=== PATIENT | female | born 1985 | race Caucasian/White ===

== ENCOUNTER → 2017-12-07 15:02 | Outpatient (CLI) | payer OTHER, SELFPAY ==
[2017-12-07 16:00] LABS: ALB/GLOB Ratio 1.2 RATIO (0.9-2.4); AST(SGOT) 20 U/L (15-37); Alanine Aminotransfer ALT/SGPT 34 U/L (13-56); Albumin, Serum 3.9 g/dL (3.2-5.0); Alkaline Phosphatase 123 U/L (45-117); Anion Gap 9 (5-15); BUN 14 mg/dL (7-18); BUN/Creat Ratio 20.1 RATIO (10-20); Calcium,Total 8.5 mg/dL (8.5-10.1); Chloride 106 mmol/L (98-107); Cholesterol 192 mg/dL (200); EST Glomerular Filtration Rate 105 mL/min (>60); Est Glom Filt Rate - Afr Amer 127 mL/min (>60); Estradiol 36.1 pg/mL; Follicle Stimulating Hormone 5.6 mIU/mL; Globulin 3.2 g/dL (2.2-4.2); Glucose 65 mg/dL (74-106); High Density Lipoprotein 33 mg/dL; Luteinizing Hormone 2.6 mIU/mL; Protein, Total 7.1 g/dL (6.4-8.2); Sodium Level 140 mmol/L (136-145); Thyroid Stim Hormone (TSH) 5.56 uIU/mL (0.358-3.74); Triglycerides 193 mg/dL; Very Low Density Lipoprotein 39 mg/dL (5-40)
[2017-12-23 12:08] LABS: Testosterone, Free 0.76 ng/dL (0.10-0.85); Testosterone, Total 34 ng/dL (8-48)
[2017-12-23 13:43] LABS: Testosterone, % Free 2.25 % (0.50-2.80)
== END ==
PROVIDERS: Family Provider Family Medicine; PCP Family Medicine; Visit Provider Internal Medicine Endocrinology, Diabetes & Metabolism
DX: E24.9 Cushing's syndrome, unspecified (principal); R94.6 Abnormal results of thyroid function studies; E78.00 Pure hypercholesterolemia, unspecified; L68.0 Hirsutism; L65.9 Nonscarring hair loss, unspecified; E28.2 Polycystic ovarian syndrome
CPT/HCPCS: 80053; 80061; 82670; 83001; 83002; 84402; 84403; 84443

== ENCOUNTER → 2017-12-20 14:22 | Outpatient (CLI) | payer OTHER, SELFPAY ==
[2017-12-20 17:24] LABS: hCG Titer Quant., Serum < 1 mIU/mL (<9 non-preg)
== END ==
PROVIDERS: Family Provider Family Medicine; PCP Family Medicine; Visit Provider Obstetrics & Gynecology
DX: N92.6 Irregular menstruation, unspecified (principal)
CPT/HCPCS: 36415; 84702

== ENCOUNTER → 2018-01-19 05:52 | Outpatient (CLI) | payer OTHER, SELFPAY | PROVIDERS: Family Provider Family Medicine; PCP Family Medicine; Visit Provider Internal Medicine Endocrinology, Diabetes & Metabolism | DX: E03.8 Other specified hypothyroidism (principal) | CPT/HCPCS: 84443 ==

== ENCOUNTER 2018-01-31 03:38 | Emergency (ER) | payer OTHER, SELFPAY ==
[2018-01-31 03:39] VITALS: BP 131/92; PULSE 84; RESP 18; TEMP 36.8; O2SAT 98; BMI 36.1
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
--- NOTE | 2018-01-31 04:02 | ED.DEP ---
ED Disposition - Plan for ED Patient: Chief Complaint: Back Instructions: ED Low Back Pain Injury Prescriptions: Cyclobenzaprine [Flexeril] 10 mg PO TID PRN #20 tab PRN Reason: Muscle Spasm Referrals: Jazmin Merrill PA-C [Primary Care Provider] -
[2018-01-31] MEDS: Ketorolac 60 MG/2 ML Vial IM (04:11)
[2018-01-31] MEDS: Orphenadrine 60 MG/2 ML Ampul IM (04:11)
[2018-01-31 04:32] VITALS: BP 118/78; PULSE 74; RESP 18; O2SAT 98
== END 2018-01-31 04:34 | disposition home or self-care (01) ==
PROVIDERS: Emergency Provider Emergency Medicine; Family Provider Family Medicine; PCP Family Medicine
DX: M54.6 Pain in thoracic spine (principal); M54.2 Cervicalgia; R51 Headache; E03.9 Hypothyroidism, unspecified; V89.2XXA Person injured in unspecified motor-vehicle accident, traffic, initial encounter; Y93.9 Activity, unspecified; Y92.9 Unspecified place or not applicable; Z90.89 Acquired absence of other organs; Z79.899 Other long term (current) drug therapy
CPT/HCPCS: 96372; 99282

== ENCOUNTER → 2018-04-02 13:18 | Outpatient (CLI) | payer OTHER, SELFPAY ==
[2018-04-02 14:17] LABS: Anion Gap 10 (5-15); BUN 15 mg/dL (7-18); BUN/Creat Ratio 16.7 RATIO (10-20); Calcium,Total 8.8 mg/dL (8.5-10.1); Chloride 108 mmol/L (98-107); EST Glomerular Filtration Rate 78 mL/min (>60); Est Glom Filt Rate - Afr Amer 94 mL/min (>60); Glucose 87 mg/dL (74-106); Potassium 3.2 mmol/L (3.5-5.1); Sodium Level 142 mmol/L (136-145); Thyroid Stim Hormone (TSH) 3.49 uIU/mL (0.358-3.74)
== END ==
PROVIDERS: Family Provider Family Medicine; PCP Family Medicine; Visit Provider Internal Medicine Endocrinology, Diabetes & Metabolism
DX: E03.8 Other specified hypothyroidism (principal)
CPT/HCPCS: 80048; 84443

== ENCOUNTER 2018-04-03 02:48 | Emergency (ER) | payer OTHER, SELFPAY ==
[2018-04-03 02:49] VITALS: BP 120/86; PULSE 84; RESP 18; TEMP 37.1; O2SAT 97; BMI 37.5
--- NOTE | 2018-04-03 03:07 | CT_ITS ---
STUDY: CT SOFT TISSUE NECK WITH CONTRAST REASON FOR EXAM: Female, 33 years old. Strep throat RADIATION DOSAGE (If Supplied By Facility): CTDIvol = ( 22.36 ) mGy, DLP = ( 658.85 ) mGycm TECHNIQUE: The patient was scanned in a multi-detector CT scanner. High resolution transaxial imaging was performed following intravenous administration of 75 ml of Isovue 300 contrast material. Sagittal and coronal images were reconstructed. Individualized dose optimization techniques were used for this CT. COMPARISON: None. FINDINGS: SUPRAHYOID HEAD AND NECK ITEM REPAIR MANAGER SPACE (INCLUDING SUPRAZYGOMATIC PORTION): Normal with no evidence of an accessory parotid lobe. No calcification in parotid duct. PARAPHARYNGEAL SPACE: Normal and symmetric. No evidence of asymmetric pterygoid plexus. RETROPHARYNGEAL SPACE: Normal with no enlarged nodes of Rouvier laterally CAROTID SPACE: Normal PERIVERTEBRAL SPACE: The prevertebral and paraspinal components are normal. PAROTID SPACE: Negative PHARYNGEAL MUCOSAL SPACE: The tonsils are minimally inflamed and enlarged but the do not touch in the midline and there is no evidence of tonsillar abscess formation. 2 tonsilliths are in the left. ORAL CAVITY : The mucosal surfaces including the anterior two thirds of the tongue and the submandibular and sublingual spaces are normal INFRAHYOID HEAD AND NECK: VISCERAL SPACE: The thyroid, trachea, esophagus, larynx and hypopharynx are normal. THE CAROTID, RETROPHARYNGEAL, PERIVERTEBRAL and POSTERIOR CERVICAL SPACES (Containing The Spinal Accessory Lymph Nodes): Normal . ORBITS AND PARANASAL SINUSES: Negative CERVICAL LYMPH NODES: Negative CT/Soft Tissue Neck WITH Contrast IMPRESSION: Mild bilateral tonsillitis. No tonsillar abscess formation is seen at this time. There are 2 tonsilliths in the left Electronically Signed: Marino Fulton, at 4:21 EDT Tel , Service support ,
[2018-04-03] MEDS: Ketorolac 30 MG/ML Syringe IV (03:29)
--- NOTE | 2018-04-03 05:05 | ED.DCSUM_ITS ---
- ER Visit Summary Date of Service: 04/03/18 Chief Complaint: Sore throat History of Present Illness: The patient is a 33 F presenting with sore throat since . She was diagnosed with strep throat and was started on Augmentin. On she was given Decadron with improvement. This morning she woke up with severe pain in her throat. She has painful swallowing. No fever. No other complaints. Physical Examination: Vitals are stable. Patient is afebrile. Alert no acute distress. HEENT exam tonsillar swelling right greater than left, uvula midline, tonsillar exudate Neck is supple. Lungs are clear and equal bilaterally. Heart is regular rate and rhythm. Extremities are unremarkable. Skin is warm and dry. Remainder of exam is unremarkable. Emergency Department Course and Treatment: Patient was given Decadron, Toradol IV. She had improvement of her symptoms. CT soft tissue neck shows mild bilateral tonsillitis. No tonsillar abscess formation is seen at this time. There are 2 tonsilliths in the left. She is resting comfortably. She is advised to continue her Augmentin. Advised to follow-up with PCP and return to the ED if she worsens. Disposition: Discharge home Impression: Tonsillitis This note was generated with [employer] dictation software. It may contain incorrect words, spelling, and punctuation that were not noted in review of the chart prior to signing ED Disposition - Plan for ED Patient: Chief Complaint: Sore Throat Referrals: Jazmin Merrill PA-C [Primary Care Provider] -
--- NOTE | 2018-04-03 05:10 | ED.DEP ---
ED Disposition - Plan for ED Patient: Chief Complaint: Sore Throat Instructions: ED Strep Pharyngitis Conf Referrals: Jazmin Merrill PA-C [Primary Care Provider] -
[2018-04-03 05:15] VITALS: BP 129/96; PULSE 78; O2SAT 97
== END 2018-04-03 05:16 | disposition home or self-care (01) ==
PROVIDERS: Emergency Provider Emergency Medicine; Family Provider Family Medicine; PCP Family Medicine
DX: J03.90 Acute tonsillitis, unspecified (principal); Z72.0 Tobacco use
CPT/HCPCS: 70491; 96374; 99285; Q9967; A4216

== ENCOUNTER → 2018-05-04 19:15 | Outpatient (CLI) | payer OTHER, SELFPAY ==
[2018-05-04 20:03] LABS: Anion Gap 8 (5-15); BUN 11 mg/dL (7-18); BUN/Creat Ratio 14.7 RATIO (10-20); Calcium,Total 9.3 mg/dL (8.5-10.1); Chloride 104 mmol/L (98-107); Creatinine, Serum 0.75 mg/dL (0.55-1.02); EST Glomerular Filtration Rate 96 mL/min (>60); Est Glom Filt Rate - Afr Amer 116 mL/min (>60); Glucose 78 mg/dL (74-106); Potassium 4.1 mmol/L (3.5-5.1); Sodium Level 138 mmol/L (136-145)
== END ==
PROVIDERS: Family Provider Family Medicine; PCP Family Medicine; Visit Provider Internal Medicine Endocrinology, Diabetes & Metabolism
DX: E87.6 Hypokalemia (principal)
CPT/HCPCS: 80048

== ENCOUNTER 2018-09-30 12:16 | Emergency (ER) | payer OTHER, SELFPAY ==
[2018-09-30 12:16] VITALS: BP 117/71; PULSE 80; RESP 16; TEMP 36.3; O2SAT 96; BMI 36.0
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
[2018-09-30] MEDS: Cephalexin 250 MG Capsule 500 MG PO (12:30)
[2018-09-30 12:33] VITALS: TEMP 36.3; BMI 36.0
== END 2018-09-30 13:04 | disposition home or self-care (01) ==
PROVIDERS: Emergency Provider Emergency Medicine; Family Provider Family Medicine; PCP Family Medicine
DX: S60.811A Abrasion of right wrist, initial encounter (principal); S60.812A Abrasion of left wrist, initial encounter; Y04.0XXA Assault by unarmed brawl or fight, initial encounter; Y93.9 Activity, unspecified; Y92.9 Unspecified place or not applicable; E03.9 Hypothyroidism, unspecified; F41.9 Anxiety disorder, unspecified; Z79.899 Other long term (current) drug therapy
CPT/HCPCS: 99284

== ENCOUNTER → 2018-10-06 10:33 | Outpatient (CLI) | payer OTHER, SELFPAY ==
[2018-09-30 12:33] VITALS: BMI 36.0
[2018-10-06 14:08] LABS: Estradiol 63.5 pg/mL
[2018-10-06 14:11] LABS: Progesterone Level 10.53 ng/mL (See Comment)
== END ==
PROVIDERS: Family Provider Family Medicine; PCP Family Medicine; Visit Provider Obstetrics & Gynecology
DX: N92.0 Excessive and frequent menstruation with regular cycle (principal); R30.0 Dysuria
CPT/HCPCS: 36415; 82670; 84144; 87086

== ENCOUNTER → 2018-10-21 16:11 | Outpatient (CLI) | payer OTHER, SELFPAY ==
[2018-09-30 12:33] VITALS: BMI 36.0
--- NOTE | 2018-10-21 19:00 | US_ITS ---
STUDY: ULTRASOUND OF THE FEMALE PELVIS - COMPLETE REASON FOR EXAM: Female, 33 years old. Heavy bleeding and cramping LMP: 10/17/2018 TECHNIQUE: Transabdominal TECHNICAL QUALITY: Adequate. COMPARISON: 07/14/2017 FINDINGS: The uterus is anteverted and is in a midline position. The uterus measures 8.8 x 4.7 x 2.9 cm. Normal uterine cervix. The endometrium measures 4.0 mm in thickness, and is hyperechoic. There is no demonstrated endometrial mass. There is no demonstrated myometrial mass. I.U.D. - The patient does not have an I.U.D. The right ovary is visualized. The right ovary measures 3.0 x 2.3 x 1.6 cm. There is no right ovarian cyst or ovarian mass. There is no visualized right adnexal mass or complex lesion. There is normal arterial and normal venous vascularity. The left ovary is visualized. The left ovary measures 2.8 x 2.0 x 1.2 cm. There is no left ovarian cyst or ovarian mass. There is no visualized left adnexal mass or complex lesion. There is normal arterial and normal venous vascularity. There is no fluid in the cul-de-sac. Visualized urinary bladder is unremarkable. US/Pelvic (Non ) IMPRESSION: Normal female pelvis. Electronically Signed: Hector Ramirez MD at 22:56 EST , Service support ,
== END ==
PROVIDERS: Family Provider Family Medicine; PCP Family Medicine; Referring Provider Obstetrics & Gynecology; Visit Provider Obstetrics & Gynecology
DX: N92.0 Excessive and frequent menstruation with regular cycle (principal)
CPT/HCPCS: 76856; 93976

== ENCOUNTER → 2018-12-02 16:24 | Outpatient (CLI) | payer OTHER, SELFPAY ==
[2018-12-02 20:34] LABS: AST(SGOT) 16 U/L (15-37); Albumin, Serum 3.8 g/dL (3.2-5.0); BUN 11 mg/dL (7-18); Calcium,Total 8.9 mg/dL (8.5-10.1); Creatinine, Serum 0.79 mg/dL (0.55-1.02); EST Glomerular Filtration Rate 90 mL/min (>60); Est Glom Filt Rate - Afr Amer 109 mL/min (>60); Globulin 3.8 g/dL (2.2-4.2); Glucose 74 mg/dL (74-106); Protein, Total 7.6 g/dL (6.4-8.2)
[2018-12-02 20:35] LABS: Alanine Aminotransfer ALT/SGPT 32 U/L (13-56); Alkaline Phosphatase 114 U/L (45-117); Anion Gap 9 (5-15); Chloride 107 mmol/L (98-107); Potassium 3.8 mmol/L (3.5-5.1); Sodium Level 140 mmol/L (136-145); Thyroid Stim Hormone (TSH) 3.64 uIU/mL (0.358-3.74)
== END ==
PROVIDERS: Family Provider Family Medicine; PCP Family Medicine
DX: E03.8 Other specified hypothyroidism (principal)
CPT/HCPCS: 80053; 84443

== ENCOUNTER → 2018-12-23 23:38 | Outpatient (CLI) | payer OTHER, SELFPAY | PROVIDERS: Family Provider Family Medicine; PCP Family Medicine; Referring Provider Family Medicine; Visit Provider Family Medicine | DX: G47.10 Hypersomnia, unspecified (principal); G47.00 Insomnia, unspecified; G25.81 Restless legs syndrome; R06.81 Apnea, not elsewhere classified; R06.83 Snoring; R51 Headache | CPT/HCPCS: 95810 ==

== ENCOUNTER → 2019-01-19 | Outpatient (CLI) | payer OTHER, SELFPAY | END | disposition home or self-care (01) | LOC: SL 20:33 | PROVIDERS: Family Provider Family Medicine; PCP Family Medicine; Referring Provider Family Medicine; Visit Provider Family Medicine | DX: R06.81 Apnea, not elsewhere classified (principal); G47.00 Insomnia, unspecified; G25.81 Restless legs syndrome; R06.83 Snoring; G47.10 Hypersomnia, unspecified; R51 Headache | CPT/HCPCS: 95811 ==

== ENCOUNTER → 2019-02-08 | Outpatient (CLI) | payer OTHER, SELFPAY | END | disposition home or self-care (01) | LOC: LAB 19:43 | PROVIDERS: Family Provider Family Medicine; PCP Family Medicine; Referring Provider Internal Medicine Endocrinology, Diabetes & Metabolism; Visit Provider Internal Medicine Endocrinology, Diabetes & Metabolism | DX: E03.8 Other specified hypothyroidism (principal) | CPT/HCPCS: 84443 ==

== ENCOUNTER 2019-03-14 11:21 | Emergency (ER) | payer OTHER, SELFPAY ==
[2019-03-14 11:22] VITALS: BP 155/101; PULSE 113; RESP 24; TEMP 36.8; BMI 36.0
--- NOTE | 2019-03-14 11:30 | ED.RN ---
lower back pain radiating around through groin. constant with surges of incresed pain. sharp/cramping. shooting sharp down through legs.
--- NOTE | 2019-03-14 11:32 | ED.VISSUMM ---
- ER Visit Summary Date of Service: 03/14/19 Chief Complaint: Back pain History of Present Illness: The patient is a 34 F who sees María Elena Merrill. Patient reports that she has back pain that began yesterday. 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 She reports that her back began spasming approximately 20 minutes later. It is gradually gotten worse. It is now a cramping pain is 10 out of 10 in severity. Is worsened by movement or walking. Is relieved by nothing. She reports that it radiates into the inguinal region bilaterally. She denies any numbness. No problems with her bowels or her bladder. No groin numbness. She does report that the pain has made her nauseated. She has not vomited. She denies any abdominal pain. She denies any other red flags. Patient denies any other trauma. No fall or MVA. She reports that she has had problems with her back once previously, but never this severe. She is never had an MRI. Physical Examination: Vitals: Stable. Afebrile. General: A&O x 3. NAD. Cardiovascular exam: Regular rate and rhythm, no murmur, rub or gallop. Respiratory exam: Clear to auscultation bilaterally. No wheezes or stridor. Abdominal exam: Soft, nontender, nondistended, normal bowel sounds. No peritoneal signs. Back: Diffuse moderate tenderness to palpation over the lumbar spine and the paraspinous musculature in the lumbar region. No point tenderness. Negative straight leg bilaterally. 5/5 DF, PF, EHL bilaterally. Normal sensation to light touch throughout. Extremity: No clubbing, cyanosis, or edema. Test Results: Clinical Impression(s) from Imaging Studies Lumbar Spine MRI 03/14/19 12:16 IMPRESSION: 1. Severe friction related edema of the posterior subcutaneous fat. 2. Mild focal degenerative disc disease at L5/S1. Electronically Signed: Charles Ortega MD at 16:02 EDT Tel , Service support , Emergency Department Course and Treatment: Patient had an IV placed. She was given Dilaudid, Zofran, and Toradol IV. She was given Valium p.o. She is resting more comfortably, but with any movement has severe pain. Treatment Plan: The patient will be discharged with Percocet and Valium. Instructed to use naproxen in addition to this. Follow-up with [facility] as soon as possible. Return to the emergency department for any worsening symptoms. Disposition: To home in improved and stable condition. Impression: 1. Lumbar strain. This note was generated with [employer] dictation software. It may contain incorrect words, spelling, and punctuation that were not noted in review of the chart prior to signing ED Disposition - Plan for ED Patient: Instructions: BACK AND NECK PAIN, General Prescriptions: Oxycodone HCl/Acetaminophen [Percocet 5/325] 1 tab PO Q6H PRN PRN 5 Days #20 tab PRN Reason: Pain Prescription Printed Diazepam [Valium] 5 mg PO Q8 PRN #20 tab PRN Reason: Muscle Spasm Prescription Printed Referrals: [facility] [GROUP OF PHYSICIANS] - As soon as possible
[2019-03-14] MEDS: Ondansetron 4 MG/2 ML Vial IV (11:41)
[2019-03-14] MEDS: 0.9% Normal Saline 1,000 ML 999 ML IV (11:42)
[2019-03-14] MEDS: HYDROmorphone 1 MG/ML Syringe IV (11:42)
[2019-03-14] MEDS: diazePAM 5 MG Tablet PO (11:42)
[2019-03-14] MEDS: Ketorolac 30 MG/ML Syringe IV (11:46)
--- NOTE | 2019-03-14 12:16 | MRI_ITS ---
STUDY: MRI LUMBAR SPINE WITHOUT CONTRAST REASON FOR EXAM: Female, 34 years old. Low back pain, groin pain. TECHNIQUE: Standardized fat and water weighted pulse sequences were obtained in the sagittal and axial planes. COMPARISON: None FINDINGS: T12-L1: Normal endplates. Normal disc height, hydration and morphology. Normal bilateral facet joints. Normal central canal and bilateral lateral recesses. Normal bilateral intervertebral neural foramina. Normal lumbar lordosis. There is no substantial scoliosis. Normal conus medullaris that terminates at the L1/L2. L1-2: Normal endplates. Normal disc height, hydration and morphology. Normal bilateral facet joints. Normal central canal and bilateral lateral recesses. Normal bilateral intervertebral neural foramina. L2-3: Normal endplates. Normal disc height, hydration and morphology. Normal bilateral facet joints. Normal central canal and bilateral lateral recesses. Normal bilateral intervertebral neural foramina. L3-4: Normal endplates. Normal disc height, hydration and morphology. Normal bilateral facet joints. Normal central canal and bilateral lateral recesses. Normal bilateral intervertebral neural foramina. L4-5: Normal endplates. Normal disc height, hydration and morphology. Normal bilateral facet joints. Normal central canal and bilateral lateral recesses. Normal bilateral intervertebral neural foramina. L5-S1: Small central disc protrusion produces mild spinal stenosis but no neural foraminal stenosis. Normal visualized sacral ala. Severe friction related edema of the posterior subcutaneous fat. MRI/Spine Lumbar (Routine) IMPRESSION: 1. Severe friction related edema of the posterior subcutaneous fat. 2. Mild focal degenerative disc disease at L5/S1. Electronically Signed: Charles Ortega MD at 16:02 EDT Tel , Service support ,
[2019-03-14] MEDS: oxyCODONE 5 MG Tablet 10 MG PO (12:28)
[2019-03-14 12:32] VITALS: BP 129/86; PULSE 70; RESP 18; O2SAT 99
[2019-03-14 14:38] VITALS: BP 108/68; PULSE 72; RESP 16; O2SAT 99
[2019-03-14 16:25] VITALS: BP 117/83; PULSE 87; RESP 16; O2SAT 98
[2019-03-14] MEDS: HYDROmorphone 0.5 MG/0.5 ML SYRINGE IV (17:21)
== END 2019-03-14 17:22 | disposition home or self-care (01) ==
LOC: ED 11:57
PROVIDERS: Emergency Provider Emergency Medicine; Family Provider Family Medicine; PCP Family Medicine
DX: S39.012A Strain of muscle, fascia and tendon of lower back, initial encounter (principal); R11.0 Nausea; M51.37 Other intervertebral disc degeneration, lumbosacral region; X58.XXXA Exposure to other specified factors, initial encounter; Y93.9 Activity, unspecified; Y92.9 Unspecified place or not applicable; G47.33 Obstructive sleep apnea (adult) (pediatric); E03.9 Hypothyroidism, unspecified; Z79.899 Other long term (current) drug therapy
CPT/HCPCS: 72148; 96361; 96374; 96375; 96376; 99282; J7030; J2405

== ENCOUNTER → 2019-04-16 | Outpatient (CLI) | payer OTHER, SELFPAY ==
[2019-03-16 12:34] VITALS: BMI 36.0
[2019-04-16 08:13] LABS: ALB/GLOB Ratio 0.9 RATIO (0.9-2.4); AST(SGOT) 20 U/L (15-37); Alanine Aminotransfer ALT/SGPT 39 U/L (13-56); Albumin, Serum 3.6 g/dL (3.2-5.0); Alkaline Phosphatase 114 U/L (45-117); Anion Gap 4 (5-15); BUN 10 mg/dL (7-18); BUN/Creat Ratio 11.8 RATIO (10-20); Chloride 109 mmol/L (98-107); Creatinine, Serum 0.84 mg/dL (0.55-1.02); EST Glomerular Filtration Rate 83 mL/min (>60); Est Glom Filt Rate - Afr Amer 100 mL/min (>60); Globulin 3.9 g/dL (2.2-4.2); Glucose 102 mg/dL (74-106); Potassium 3.8 mmol/L (3.5-5.1); Protein, Total 7.5 g/dL (6.4-8.2); Sodium Level 136 mmol/L (136-145); Thyroid Stim Hormone (TSH) 4.09 uIU/mL (0.358-3.74)
== END | disposition home or self-care (01) ==
PROVIDERS: Family Provider Family Medicine; PCP Family Medicine
DX: E03.8 Other specified hypothyroidism (principal)
CPT/HCPCS: 80053; 84443

== ENCOUNTER → 2019-06-13 18:51 | Outpatient (CLI) | payer OTHER, SELFPAY ==
[2019-03-16 12:34] VITALS: BMI 36.0
[2019-06-13 20:01] LABS: Thyroid Stim Hormone (TSH) 4.06 uIU/mL (0.358-3.74)
== END ==
PROVIDERS: Family Provider Family Medicine; PCP Family Medicine; Referring Provider Internal Medicine Endocrinology, Diabetes & Metabolism; Visit Provider Internal Medicine Endocrinology, Diabetes & Metabolism
DX: E03.8 Other specified hypothyroidism (principal)
CPT/HCPCS: 84443

== ENCOUNTER → 2019-06-21 11:56 | Outpatient (CLI) | payer OTHER, SELFPAY ==
[2019-06-19 15:48] VITALS: BMI 36.0
== END ==
PROVIDERS: Family Provider Family Medicine; PCP Family Medicine; Referring Provider Obstetrics & Gynecology; Visit Provider Obstetrics & Gynecology
DX: L29.9 Pruritus, unspecified (principal); N93.9 Abnormal uterine and vaginal bleeding, unspecified

== ENCOUNTER → 2019-06-23 14:07 | Outpatient (CLI) | payer OTHER, SELFPAY ==
[2019-06-19 15:48] VITALS: BMI 36.0
== END ==
PROVIDERS: Family Provider Family Medicine; PCP Family Medicine; Referring Provider Obstetrics & Gynecology; Visit Provider Obstetrics & Gynecology
DX: L29.9 Pruritus, unspecified (principal); N93.9 Abnormal uterine and vaginal bleeding, unspecified
CPT/HCPCS: 36415

== ENCOUNTER → 2019-07-28 16:13 | Outpatient (CLI) | payer OTHER, SELFPAY ==
[2019-06-19 15:48] VITALS: BMI 36.0
[2019-07-28 18:48] LABS: Thyroid Stim Hormone (TSH) 1.26 uIU/mL (0.358-3.74)
== END ==
PROVIDERS: Family Provider Family Medicine; PCP Family Medicine; Visit Provider Internal Medicine Endocrinology, Diabetes & Metabolism
DX: E03.8 Other specified hypothyroidism (principal)
CPT/HCPCS: 84443

== ENCOUNTER → 2019-11-30 16:49 | Outpatient (CLI) | payer OTHER, SELFPAY ==
[2019-11-30 14:08] VITALS: BMI 36.0
[2019-12-06 03:06] LABS: HPV Genotype 16, Aptima Negative (Negative)
[2019-12-06 13:04] LABS: HPV APTIMA, High Risk Positive (Negative); HPV Genotype 18,45 Aptima Negative (Negative)
== END ==
PROVIDERS: PCP Family Medicine; Referring Provider Obstetrics & Gynecology; Visit Provider Obstetrics & Gynecology
DX: Z12.4 Encounter for screening for malignant neoplasm of cervix (principal)
CPT/HCPCS: 87624; 88175; G0145

== ENCOUNTER → 2020-02-15 14:39 | Outpatient (CLI) | payer OTHER, SELFPAY ==
[2020-02-15 13:13] VITALS: BMI 36.0
== END ==
PROVIDERS: PCP Family Medicine; Referring Provider Nurse Practitioner Women's Health; Visit Provider Nurse Practitioner Women's Health
DX: N76.0 Acute vaginitis (principal)
CPT/HCPCS: 87070; 87205

== ENCOUNTER → 2020-03-07 | Outpatient (CLI) | payer OTHER, SELFPAY ==
[2020-02-15 13:13] VITALS: BMI 36.0
[2020-03-07 19:33] LABS: Bacteria 0 SEEN /hpf (None Seen); Mucous, Urine 0 SEEN /hpf (<or=2+); Red Blood Cells-Urine 0 SEEN /hpf (0-5); Squamous Epithelial Cells - UA 0 SEEN /hpf (5-10); White Blood Cells 0 SEEN /hpf (0-5)
[2020-03-07 19:44] LABS: Color, Urine Yellow (Yellow); Glucose, Dipstick Normal (Normal); Ketone-Dipstick Negative (Negative); Leukocyte Esterase-Dipstick Negative /ul (Negative); Nitrite-Dipstick Negative (Negative); Occult Blood-Urine Negative /ul (Negative); Protein-Dipstick Negative (Negative); Specific Gravity, Urine 1.015 (1.002-1.030); Urine Bilirubin Dipstick Negative (Negative); Urine Clarity Clear (Clear); Urine Urobilinogen Normal (Normal)
== END | disposition home or self-care (01) ==
PROVIDERS: PCP Family Medicine
DX: Z52.4 Kidney donor (principal)
CPT/HCPCS: 36415; 81001; 86900; 86901

== ENCOUNTER → 2020-04-02 08:30 | Outpatient (CLI) | payer OTHER, SELFPAY ==
[2020-02-15 13:13] VITALS: BMI 36.0
== END ==
PROVIDERS: PCP Family Medicine; Visit Provider Family Medicine Hospice and Palliative Medicine
DX: Z11.59 Encounter for screening for other viral diseases (principal)
CPT/HCPCS: 87635; G2023; U0003

== ENCOUNTER → 2020-07-22 10:54 | Outpatient (CLI) | payer OTHER, SELFPAY ==
[2020-07-22 10:09] VITALS: BMI 33.8
[2020-07-22 12:13] LABS: Thyroid Stim Hormone (TSH) 1.15 uIU/mL (0.358-3.74)
== END ==
PROVIDERS: PCP Family Medicine; Referring Provider Obstetrics & Gynecology; Visit Provider Obstetrics & Gynecology
DX: F32.81 Premenstrual dysphoric disorder (principal); N92.1 Excessive and frequent menstruation with irregular cycle
CPT/HCPCS: 36415; 84443

== ENCOUNTER → 2020-08-06 15:37 | Outpatient (CLI) | payer OTHER, SELFPAY ==
[2020-07-22 10:09] VITALS: BMI 33.8
== END ==
PROVIDERS: PCP Family Medicine; Visit Provider Emergency Medicine
DX: R19.7 Diarrhea, unspecified (principal)
CPT/HCPCS: 87493; 87506

== ENCOUNTER → 2020-12-03 | Outpatient (CLI) | payer OTHER, SELFPAY ==
[2020-12-03 13:22] VITALS: BMI 32.4
[2020-12-06 21:48] LABS: HPV APTIMA, High Risk Negative (Negative)
== END | disposition home or self-care (01) ==
LOC: LABSPEC 16:36
PROVIDERS: PCP Family Medicine; Referring Provider Obstetrics & Gynecology; Visit Provider Obstetrics & Gynecology
DX: Z12.4 Encounter for screening for malignant neoplasm of cervix (principal)
CPT/HCPCS: 87624; 88175; G0145

== ENCOUNTER → 2021-08-13 08:27 | Outpatient (CLI) | payer OTHER, SELFPAY ==
--- NOTE | 2021-08-13 08:28 | RAD_ITS ---
STUDY: X-RAY - LEFT KNEE REASON FOR EXAM: Female, 36 years old. Pain. TECHNIQUE: 4 view(s) of the knee. COMPARISON: 04/04/2016. FINDINGS: No acute fracture, dislocation or osseous destruction. Mild medial and patellofemoral arthrosis. Trace joint effusion. Mild anterior swelling. RAD/Knee 4 or More Views IMPRESSION: Left knee intact with mild medial patellofemoral arthrosis Trace joint effusion with mild anterior swelling Electronically Signed: Kan Glez DO at 12:38 EST Tel , Service support ,
== END ==
PROVIDERS: PCP Family Medicine; Visit Provider Orthopaedic Surgery
DX: M25.562 Pain in left knee (principal)
CPT/HCPCS: 73564

== ENCOUNTER 2021-11-24 09:56 | Outpatient (CLI) | payer OTHER, SELFPAY ==
[2021-11-24 10:42] LABS: Vitamin D,25 Hydroxy 32.8 ng/mL
[2021-11-24 10:47] LABS: Hemoglobin A1c 4.9 % (3.8-5.6)
[2021-11-24 10:48] LABS: ALB/GLOB Ratio 0.9 RATIO (0.9-2.4); AST(SGOT) 16 U/L (15-37); Alanine Aminotransfer ALT/SGPT 36 U/L (13-56); Albumin, Serum 3.7 g/dL (3.2-5.0); Alkaline Phosphatase 87 U/L (45-117); Anion Gap 5 (5-15); BUN 21 mg/dL (7-18); BUN/Creat Ratio 21.4 RATIO (10-20); Calcium,Total 8.7 mg/dL (8.5-10.1); Chloride 108 mmol/L (98-107); Creatinine, Serum 0.98 mg/dL (0.55-1.02); EST Glomerular Filtration Rate 69 mL/min (>60); Est Glom Filt Rate - Afr Amer 83 mL/min (>60); Glucose 91 mg/dL (74-106); Potassium 3.8 mmol/L (3.5-5.1); Protein, Total 7.7 g/dL (6.4-8.2); Sodium Level 139 mmol/L (136-145); T4 Free Direct 0.94 ng/dL (0.76-1.46); Thyroid Stim Hormone (TSH) 2.97 uIU/mL (0.358-3.74)
== END 2021-11-24 23:59 | disposition home or self-care (01) ==
LOC: LAB 09:59
PROVIDERS: PCP Family Medicine; Referring Provider Internal Medicine Endocrinology, Diabetes & Metabolism; Visit Provider Internal Medicine Endocrinology, Diabetes & Metabolism
DX: E55.9 Vitamin D deficiency, unspecified (principal); E03.8 Other specified hypothyroidism; E06.3 Autoimmune thyroiditis; E28.2 Polycystic ovarian syndrome
CPT/HCPCS: 36415; 80053; 82306; 83036; 84439; 84443

== ENCOUNTER 2023-05-11 23:05 | Emergency (ER) | payer OTHER, SELFPAY ==
[2023-05-11 23:06] VITALS: BP 118/72; PULSE 95; RESP 18; TEMP 36.6; O2SAT 98
[2023-05-11] MEDS: Penicillin Vk 250 MG Tablet 500 MG PO (23:22)
[2023-05-11] MEDS: dexAMETHasone 10 MG/ML Vial PO.IVFORM (23:22)
--- NOTE | 2023-05-11 23:31 | EX.ED.DYSGE1 ---
HPI History of Present Illness Chief Complaint: Sore Throat Informant: patient Narrative Narrative: Patient is a 38-year-old female who presents to the ER with 2 to 3 days of sore throat. Patient denies any fevers or chills congestion or drainage or cough associated with this. She states that over the past few days the pain has steadily increased yet there has been no fevers or difficulty swallowing. Patient does have a past history of strep throat and states this feels similar nature and with concern for infection presents for evaluation. [facility] Medical History Abnormal glucose Back pain Contraceptive management Limb weakness Norovirus PCOS (polycystic ovarian syndrome) Sleep apnea Thyroid disease Home Medications rizatriptan 10 mg tablet (Maxalt) 10 mg PO ONCE PRN 08/13/21 [History Last Taken Unknown] Keto supplement PO 12/04/21 [History Last Taken Unknown] levonorgestrel 20.4 mcg/24 hrs (8 yrs) 52 mg intrauterine device (Liletta) 1 device intrauterine ONCE 12/04/21 [History Last Taken Unknown] zolpidem 5 mg tablet (Ambien) 5 mg PO QHS PRN 12/04/21 [History Last Taken Unknown] alprazolam 0.5 mg tablet,extended release 24 hr (Xanax XR) 0.5 mg PO DAILY PRN 12/04/22 [History Last Taken Unknown] cholecalciferol (vitamin D3) 125 mcg (5,000 unit) capsule 125 mcg PO DAILY 12/04/22 [History Last Taken Unknown] levothyroxine 125 mcg tablet 125 mcg PO DAILY #90 tabs 04/06/23 [Rx Last Taken Unknown] metformin 500 mg tablet 500 mg PO BID 05/04/23 [History Last Taken Unknown] penicillin V potassium 500 mg tablet 500 mg PO BID 10 days #20 tabs 05/11/23 [Rx Last Taken Unknown] prednisone 20 mg tablet 40 mg (2 x 20 mg) PO DAILY 7 days #14 tabs 05/11/23 [Rx Last Taken Unknown] Allergy/AdvReac Type Severity Reaction Status Date / Time sulfamethoxazole Allergy Rash Verified 05/04/23 10:31 [From Bactrim] trimethoprim [From Bactrim] Allergy Rash Verified 05/04/23 10:31 Family History Father Cancer leukemia Grandfather Hypertension Cancer Diabetes Heart disease Grandmother Hypertension Cancer Diabetes Heart disease Surgical History History of appendectomy History of arthroscopic knee surgery Social History (Updated 05/04/23 @ 10:33 by Em Leos) Smoking Status: Never smoker alcohol intake: never substance use type: does not use caffeine: Yes what type of physical activity do you participate in: walking seatbelt use: always do you feel safe at home: Yes additional social history: [employer] 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 ROS ROS ED Constitutional Constitutional ED: Denies chills or fever(s) ENT ENT ED: Reports sore throat; Denies rhinorrhea Cardiovascular Cardiovascular: Denies chest pain Respiratory/Chest Respiratory/Chest: Denies cough or dyspnea Gastrointestinal Gastrointestinal: Denies abdominal pain, diarrhea, nausea or vomiting Genitourinary Genitourinary ED: Denies dysuria Musculoskeletal Musculoskeletal: Denies myalgias Integumentary Denies rash Neurologic Neurologic: Denies headache(s) Hematologic/Lymphatic Hematologic/Lymphatic: Denies easy bleeding or easy bruising EXAM Physical Exam Const Vital Signs: 05/11/23 23:06 Temperature 98 F Temperature Source Temporal Pulse Rate 95 Respiratory Rate 18 Blood Pressure 118/72 Blood Pressure Mean 87 Pulse Ox 98 Oxygen Delivery Method Room Air Positive well nourished and well developed General Appearance ED: well developed HEENT Reports moist mucous membranes HEENT Narrative: Posterior pharynx displays diffuse erythema with +1-2 tonsillar hypertrophy and exudates. No hard palate petechiae. No trismus change in voice or difficulty with secretions. No obvious findings for retropharyngeal or peritonsillar abscess Eyes PERRL and EOMs intact bilaterally Neck supple Neck Narrative: Positive tender anterior cervical of adenopathy noted Resp normal respiratory effort and clear to auscultation bilaterally Cardio regular rate and regular rhythm Extremity normal to inspection Neuro oriented x3, CN's II-XII intact bilaterally and no sensory deficits noted Sensorium / Orientation: alert Motor Exam: strength 5/5 throughout Psych mental status grossly normal Skin no rashes or lesions noted MDM MDM MDM Narrative Medical decision making narrative: Patient presented to the ER afebrile but had sore throat with out viral symptoms of congestion drainage or cough. There is tender anterior cervical lymphadenopathy but no posterior lymph nodes noted going against mono. There is no difficulty with secretions or change in voice and therefore concern for peritonsillar abscess or epiglottitis is low and I do not feel there is need for a CT scan of the neck. At this time patient has 3-4 changes consistent with center criteria concerning for active strep pharyngitis and therefore should be placed on antibiotics but as there is no sign of respiratory distress or systemic infection is otherwise safe for discharge. History & Record Review Discussion w/independent historian: Patient Discharge Plan Triage Chief Complaint: Sore Throat ED Provider: Yasmany Boyd Dx/Rx/DC Orders Clinical Impression: Acute pharyngitis Instructions: ED Pharyngitis, Viral Prescriptions: New prednisone 20 mg tablet 40 mg PO DAILY 7 Days Qty: 14 0RF penicillin V potassium 500 mg tablet 500 mg PO BID 10 Days Qty: 20 0RF No Action rizatriptan [Maxalt] 10 mg tablet 10 mg PO ONCE PRN Rx Instructions: may repeat once after at least 2 hours Keto supplement PO zolpidem [Ambien] 5 mg tablet 5 mg PO QHS PRN Liletta 20.1 mcg/24 hrs (6 yrs) 52 mg intrauterine device 1 device intrauterine ONCE Rx Instructions: as a single dose cholecalciferol (vitamin D3) 125 mcg (5,000 unit) capsule 125 mcg PO DAILY alprazolam [Xanax XR] 0.5 mg tablet extended release 24 hr 0.5 mg PO DAILY PRN Rx Instructions: TID PRN metformin 500 mg tablet 500 mg PO BID levothyroxine 125 mcg tablet 125 mcg PO DAILY Qty: 90 2RF Primary Care Provider: Jazmin Merrill Referrals: Jazmin Merrill PA-C [Primary Care Provider] - Disposition Disposition: Home, Self Care Discharge Date/Time: 05/11/23 23:53
== END 2023-05-11 23:53 | disposition home or self-care (01) ==
LOC: ED 23:15
PROVIDERS: Emergency Provider Emergency Medicine; PCP Family Medicine; Visit Provider Emergency Medicine
DX: J02.9 Acute pharyngitis, unspecified (principal); E07.9 Disorder of thyroid, unspecified; Z79.84 Long term (current) use of oral hypoglycemic drugs; Z79.890 Hormone replacement therapy; Z79.899 Other long term (current) drug therapy
CPT/HCPCS: 99283

== ENCOUNTER → 2023-06-25 | Outpatient (CLI) | payer OTHER, SELFPAY ==
[2023-06-25 07:45] LABS: Vitamin D,25 Hydroxy 42.7 ng/mL
== END | disposition home or self-care (01) ==
LOC: LAB 06:13
PROVIDERS: PCP Family Medicine; Referring Provider Family Medicine; Visit Provider Family Medicine
DX: E55.9 Vitamin D deficiency, unspecified (principal)
CPT/HCPCS: 36415; 82306

== ENCOUNTER 2023-12-12 07:04 | Emergency (ER) | payer OTHER, SELFPAY ==
[2023-12-12 07:05] VITALS: BP 139/95; PULSE 93; RESP 14; TEMP 36.5; O2SAT 97
[2023-12-12 07:13] VITALS: BMI 41.7
--- NOTE | 2023-12-12 07:15 | ED.VIS.BACK ---
HPI History of Present Illness Chief Complaint: Back Detail of Chief Complaint: Back pain Informant: patient Narrative Narrative: Patient presents with atraumatic back pain that she has had for about 2 weeks. Patient states that she had an injury in 2018 and she has had some intermittent pain since then. Started 2 weeks ago with some left-sided back pain without injury or trauma. She had a massage that seemed to help for a few days. Patient's been working and has not had a chance to go to the chiropractor. She has tried naproxen and Biofreeze as well as Flexeril and not get much pain relief. Pain is positional and certainly worse with certain movements. She denies any pain rating down her legs. She denies loss of bowel or bladder function. She denies urinary symptoms. Patient denies history of kidney stones. Pain does not radiate to the abdomen. [facility] Medical History Abnormal glucose Back pain Contraceptive management Limb weakness Norovirus PCOS (polycystic ovarian syndrome) Sleep apnea Thyroid disease Home Medications rizatriptan 10 mg tablet (Maxalt) 10 mg PO ONCE PRN 08/13/21 [History Last Taken Unknown] Keto supplement PO 12/04/21 [History Last Taken Unknown] levonorgestrel 20.4 mcg/24 hrs (8 yrs) 52 mg intrauterine device (Liletta) 1 device intrauterine ONCE 12/04/21 [History Last Taken Unknown] zolpidem 5 mg tablet (Ambien) 5 mg PO QHS PRN 12/04/21 [History Last Taken Unknown] alprazolam 0.5 mg tablet,extended release 24 hr (Xanax XR) 0.5 mg PO DAILY PRN 12/04/22 [History Last Taken Unknown] cholecalciferol (vitamin D3) 125 mcg (5,000 unit) capsule 125 mcg PO DAILY 12/04/22 [History Last Taken Unknown] levothyroxine 125 mcg tablet 125 mcg PO DAILY #90 tabs 04/06/23 [Rx Last Taken Unknown] metformin 500 mg tablet 500 mg PO BID 05/04/23 [History Last Taken Unknown] penicillin V potassium 500 mg tablet 500 mg PO BID 10 days #20 tabs 05/11/23 [Rx Last Taken Unknown] prednisone 20 mg tablet 40 mg (2 x 20 mg) PO DAILY 7 days #14 tabs 05/11/23 [Rx Last Taken Unknown] diazepam 5 mg tablet (Valium) 5 mg PO TID PRN muscle spasm #14 tabs 12/12/23 [Rx Last Taken Unknown] hydrocodone-acetaminophen 5-325mg 5mg-325mg 1 tab PO Q4H PRN PRN Pain 2 days #10 TABLETS 12/12/23 [Rx Last Taken Unknown] Allergy/AdvReac Type Severity Reaction Status Date / Time sulfamethoxazole Allergy Rash Verified 06/03/23 10:10 [From Bactrim] trimethoprim [From Bactrim] Allergy Rash Verified 06/03/23 10:10 Family History Father Cancer leukemia Grandfather Hypertension Cancer Diabetes Heart disease Grandmother Hypertension Cancer Diabetes Heart disease Surgical History History of appendectomy History of arthroscopic knee surgery Social History Smoking Status: Never smoker alcohol intake: never substance use type: does not use caffeine: Yes what type of physical activity do you participate in: walking seatbelt use: always do you feel safe at home: Yes additional social history: [employer] Patient is an RN [employer] ER ROS ROS ED Review of Systems ROS Unobtainable: other Constitutional Constitutional ED: Reports lethargy; Denies chills, fever(s), sweats or weight loss Eyes Eyes: Denies blurry vision, change in vision or diplopia ENT ENT ED: Denies rhinorrhea or sore throat Cardiovascular Cardiovascular: Denies chest pain, orthopnea or racing heartbeat Respiratory/Chest Respiratory/Chest: Denies cough, dyspnea, dyspnea on exertion, orthopnea or sputum Gastrointestinal Gastrointestinal: Denies abdominal pain, diarrhea, nausea or vomiting Genitourinary Genitourinary ED: Denies dysuria, hematuria or urinary frequency Musculoskeletal Musculoskeletal: Reports back pain; Denies arthralgias, myalgias or neck pain Integumentary Denies abscess, Abrasions or rash Neurologic Neurologic: Denies headache(s) or weakness Psychiatric Psychiatric: Denies anxiety, depression or suicidal thoughts Endocrine Endocrinology: Denies polydipsia, polyphagia or polyuria Hematologic/Lymphatic Hematologic/Lymphatic: Denies easy bleeding, easy bruising or lymphadenopathy Allergic/Immunologic Allergic/Immunologic ED: Denies mouth swelling, tongue swelling or urticaria EXAM Physical Exam Const Vital Signs: 12/12/23 07:05 Temperature 97.7 F L Temperature Source Temporal Pulse Rate 93 Respiratory Rate 14 Blood Pressure 139/95 H Blood Pressure Mean 109 Pulse Ox 97 Oxygen Delivery Method Room Air Positive well nourished and well developed General Appearance ED: well developed and NAD HEENT Reports TM's clear and moist mucous membranes normocephalic and atraumatic; Negative for trauma or tenderness Tympanic Membrane ED: Yes TM's clear Eyes PERRL and EOMs intact bilaterally General Eye ED: Negative for pale conjunctiva or scleral icterus Neck no lymphadenopathy, supple and no JVD General: Negative for tenderness Chest Wall inspection of chest normal and palpation of chest normal Chest: Negative for tenderness Resp normal respiratory effort and clear to auscultation bilaterally Effort and Inspection: Negative for respiratory distress or pain with movement Auscultation: Negative for rhonchi, wheezes or diminished lung sounds Cardio regular rate, regular rhythm, S1 normal heart sound, S2 normal heart sound and no murmurs Peripheral Pulses: pulses 2+ throughout GI normal to inspection, nondistended, normoactive bowel sounds, soft to palpation, non-tender, non-distended and no masses Back/Spine no CVA tenderness and no thoracic nor lumbar tenderness Back/Spine Narrative: Mild tenderness to palpation over the left lumbar paraspinal musculature. No erythema or warmth noted. No bony tenderness on exam. She has negative straight leg raises. Deep tendon reflexes are plus 2 out of 4 bilaterally at the patella and Achilles. Patient has normal L5 extension. Neurovascularly intact. Extremity normal to inspection General Extremety ED: Negative for edema General Extremity: Negative for edema Neuro oriented x3, CN's II-XII intact bilaterally, no sensory deficits noted and gait normal Sensorium / Orientation: awake, alert, oriented to person, oriented to place and oriented to time Motor Exam: strength 5/5 throughout and strength abnormal Psych mental status grossly normal Skin no rashes or lesions noted and no wounds MDM MDM MDM Narrative Medical decision making narrative: Patient presents with atraumatic back pain that she has had in the past. Clinically suspect musculoskeletal pain/muscle spasm. I do not feel imaging is indicated and patient in agreement. Will start on Valium and few [place] for pain. Advised to follow-up with primary care physician within the next 3 to 5 days. Vies to return if worsening pain, weakness extremities, change in bowel or bladder function, or condition should worsen anyway. Discharge Plan Triage Chief Complaint: Back ED Provider: Susan Townsend Dx/Rx/DC Orders Clinical Impression: Back pain Instructions: ED Back and Neck Pain, General Prescriptions: New diazepam [Valium] 5 mg tablet 5 mg PO TID PRN (Reason: muscle spasm) Qty: 14 0RF hydrocodone-acetaminophen [hydrocodone-acetaminophen] 5-325 mg tablet 1 tab PO Q4H PRN PRN (Reason: Pain) 2 Days Qty: 10 0RF No Action rizatriptan [Maxalt] 10 mg tablet 10 mg PO ONCE PRN Rx Instructions: may repeat once after at least 2 hours Keto supplement PO zolpidem [Ambien] 5 mg tablet 5 mg PO QHS PRN Liletta 20.1 mcg/24 hrs (6 yrs) 52 mg intrauterine device 1 device intrauterine ONCE Rx Instructions: as a single dose cholecalciferol (vitamin D3) 125 mcg (5,000 unit) capsule 125 mcg PO DAILY alprazolam [Xanax XR] 0.5 mg tablet extended release 24 hr 0.5 mg PO DAILY PRN Rx Instructions: TID PRN metformin 500 mg tablet 500 mg PO BID prednisone 20 mg tablet 40 mg PO DAILY 7 Days Qty: 14 0RF penicillin V potassium 500 mg tablet 500 mg PO BID 10 Days Qty: 20 0RF levothyroxine 125 mcg tablet 125 mcg PO DAILY Qty: 90 2RF Primary Care Provider: Jazmin Merrill Referrals: Jazmin Merrill PA-C [Primary Care Provider] - 3-5 Days Disposition Disposition: Home, Self Care Discharge Date/Time: 12/12/23 07:56
--- OUTSIDE RECORDS SUMMARY | 2023-12-12 07:23 | XMS RPT_ITS | CCD ---
Author Name Unknown Address [address] [place] [address] Organization [facility] Care Team Providers [employer] Name Role Phone JACINTO BUNDY Attending Unavailable NIHARIKA JACINTO Primary Care Unavailable NIHARIKA JACINTO Admitting Unavailable NIHARIKA JACINTO PAC Consulting Unavailable PROVIDER, UNKNOWN Consulting Unavailable Problems Problem Classification Problem Date Documented Da te Episodic/Chronic Nutritional deficiencies (1 source) Vitamin D deficiency, unspecified; Translations: [Vitamin D deficiency, unspecified] Onset: 06-24-2023 Chronic Results Test Name Value Interpretation Reference Range Facil ity Encounters Encounter Date Encounter Type Care Provider Facility Start: 06-24-2023 ambulatory [facility] [place] Summary Purpose Family History No Family History Records FoundNo Family History Records Found Advance Directives No Advanced Directives Records FoundNo Advanced Directives Records Found Additional Source Comments INFORMATION SOURCE (unrecogn ized section and content) DATE CREATED AUTHOR AUTHOR'S ORGANIZ ATION 07/01/2023 [facility] FOR RECORDS PERTAINING TO PATIENTS WHO ARE OR HAVE BEEN ENROLLED IN A CHEMICAL DEPENDENCY/SUBSTANCEABUSE PROGRAM, SOME INFORMATION MAY BE OMITTED. This clinical summary was aggregated from multiple sources. Caution should be exercised in using it in the provision of clinical care. This summary normalizes information from multiple sources, and as a consequence, information in this document may materially change the coding, format and clinical context of patient data. In addition, data may be omitted in some cases. CLINICAL DECISIONS SHOULD BE BASED ON THE PRIMARY CLINICAL RECORDS. [employer] provides no warranty or guarantee of the accuracy or completeness of information in this document.
[2023-12-12] MEDS: diazePAM 5 MG Tablet PO (07:56)
== END 2023-12-12 07:56 | disposition home or self-care (01) ==
PROVIDERS: Emergency Provider Emergency Medicine; PCP Family Medicine; Visit Provider Emergency Medicine
DX: M54.50 Low back pain, unspecified (principal)
CPT/HCPCS: 99282

== ENCOUNTER → 2024-03-22 | Outpatient (CLI) | payer OTHER, SELFPAY ==
[2024-03-22 02:49] LABS: Absolute Lymphocyte Count 2.16 X10^3/uL (0.83-4.51); Absolute Neutrophil Count 10.8 X10^3/uL (2.0-7.7); Basophil# 0.08 X10^3/uL; Basophil% 0.6 % (0-1); Eosinophil# 0.15 X10^3/uL; Eosinophils% 1.1 % (0-5); Hematocrit 39.8 % (37-47); Hemoglobin 13.7 g/dL (12.0-15.0); Lymphocyte # 2.16 X10^3/ul (0.83-4.51); Lymphocyte % 15.2 % (19-41); Mean Corp Hgb Conc 34.4 g/dL (32-36); Mean Corpuscular Hgb 31.4 pg (27.0-32.0); Mean Corpuscular Volume 91.1 fL (81-99); Mean Platelet Vol. 10.5 fl (6.2-12.0); Monocyte# 0.92 X10^3/uL; Monocyte% 6.5 % (0-10); NRBC Flagged by Analyzer 0 % (0-5); Neutrophil # 10.81 X10^3/uL (2.7-7.7); Platelet Count 350 K/mm3 (150-450); RBC Distribution Width CV 12.1 % (11.6-14.6); RBC Distribution Width SD 40.1 fl (35.1-43.9); Red Blood Count 4.37 M/mm3 (4.2-5.4); White Blood Count 14.2 K/mm3 (4.4-11.0)
[2024-03-22 03:12] LABS: AST(SGOT) 24 U/L (15-37); Alanine Aminotransfer ALT/SGPT 48 U/L (13-56); Albumin, Serum 3.8 g/dL (3.2-5.0); Alkaline Phosphatase 119 U/L (45-117); Anion Gap 9 (5-15); BUN 16 mg/dL (7-18); BUN/Creat Ratio 16.4 RATIO (10-20); Calcium,Total 9.3 mg/dL (8.5-10.1); Chloride 107 mmol/L (98-107); Cholesterol 200 mg/dL (200); Creatinine, Serum 0.98 mg/dL (0.55-1.02); EST Glomerular Filtration Rate 68 mL/min (>60); Est Glom Filt Rate - Afr Amer 82 mL/min (>60); Glucose 113 mg/dL (74-106); High Density Lipoprotein 31 mg/dL; Potassium 3.8 mmol/L (3.5-5.1); Protein, Total 7.8 g/dL (6.4-8.2); Sodium Level 138 mmol/L (136-145); T4 Free Direct 1.04 ng/dL (0.76-1.46); Thyroid Stim Hormone (TSH) 0.93 uIU/mL (0.358-3.74); Triglycerides 378 mg/dL; Very Low Density Lipoprotein 76 mg/dL (5-40)
== END | disposition home or self-care (01) ==
LOC: LAB 02:12
PROVIDERS: PCP Family Medicine; Visit Provider Internal Medicine Endocrinology, Diabetes & Metabolism
DX: E03.8 Other specified hypothyroidism (principal); E06.3 Autoimmune thyroiditis; E28.2 Polycystic ovarian syndrome; E78.00 Pure hypercholesterolemia, unspecified
CPT/HCPCS: 80053; 80061; 83036; 84439; 84443; 85025

== ENCOUNTER → 2025-04-06 | Outpatient (CLI) | payer OTHER, SELFPAY ==
--- OUTSIDE RECORDS SUMMARY | 2025-04-06 05:09 | XMS RPT_ITS | CCD ---
Author Organization [facility] Inform ion Partnership [facility] Care Team Providers Care Jewelry Designer Name Role Phone CHARMAINE Lynch Primary Care Provider CHARMAINE Lynch Referring Provider [phone] Dr. Kathy Perez Attending Provider CHARMAINE Lynch Primary Care Provider [phone] CHARMAINE Lynch Referring Provider LANRE Shaikh Attending Provider JACINTO MERRILL PAC Consulting Unavailable JACINTO MERRILL Attending Unavailable JACINTO MERRILL Primary Care Unavailable JACINTO MERRILL Admitting Unavailable PROVIDER, UNKNOWN Consulting Unavailable Jacinto Merrill PA-C Primary Care Provider Jacinto Merrill PA-C Referring Provider Dr. Noe Lee MD Attending Provider Jacinto Lynch Referring Unavailable Radha Gandhi Attending Unavailable [place] Jacinto DE DIOS Primary Care Unavailable [place] Jacinto DE DIOS Referring Noe Darby Attending Unavailable [place] Jacinto DE DIOS [facility] Care Unavailable Allergies Allergy Classification Reported Allergen(s) Allergy Type Date of Onset Reaction(s) Facility (3 sources) Sulfamethoxazole Drug Allergy 3 [facility] (3 sources) Trimethoprim Drug Allergy 3 [facility] (1 source) Sulfamethoxazole Drug Allergy 5 [facility] (1 source) Trimethoprim Drug Allergy 5 [facility] Medications Current Medications Medication Drug Class(es) Dates Sig (Normalized) Sig (Original) 24 hr ALPRAZolam 0.5 mg extended release oral tablet (9 sources) Benzodiazepine Start: 12-04-2022 take 1 tablet by mouth once daily as needed Alprazolam (Xanax Xr) 0.5 mg tablet extended release 24 hr Active 0.5 mg PO DAILY as needed December 04, 2022 1:00am TID PRN Start: 12-04-2022 take 1 tablet by gigi th three times daily as needed Alprazolam (Xanax Xr) 0.5 mg tablet extended release 24 hr Active 0.5 MG PO DAILY December 04, 2022 1:00am TID PRN Start: 01-31-2021 End: 12-04-2021 take 1 tablet by mouth once as needed for anxiety Alprazolam 2 mg tablet Discontinued 2 mg PO ONCE as needed for anxiety August 13, 2021 9:07am December 04, 2021 9:30am Biotin (1 source) Start: 04-02-2025 Biotin (Hair, Skin And Nails (Biotin)) 10,000 mcg tablet,chewable Active ug PO April 02, 2025 12:00am cholecalciferol 0.025 mg oral capsule (14 sources) Vitamin D Start: 04-02-2025 take 1 capsule by mouth once daily Cholecalciferol (Vitamin D3) 25 mcg (1,000 unit) capsule Active 25 ug PO daily April 02, 2025 12:00am Start: 03-21-2024 End: 08-11-2024 take 1 capsule by mouth once daily Cholecalciferol (Vitamin D3) 50 mcg (2,000 unit) capsule Discontinued 50 ug PO DAILY March 21, 2024 12:00am August 11, 2024 11:32am Start: 12-04-2022 End: 03-21-2024 take 1 capsule by mouth once daily Cholecalciferol (Vitamin D3) 125 mcg (5,000 unit) capsule Discontinued 125 ug PO DAILY December 04, 2022 1:00am March 21, 2024 8:04am Start: 11-24-2021 End: 12-04-2022 take 1 capsule by mouth every week Cholecalciferol (Vitamin D3) 1,250 mcg (50,000 unit) capsule Discontinued 1250 ug PO EVERY WEEK November 24, 2021 1:00am December 04, 2022 9:00am Start: 08-13-2021 End: 12-04-2021 take 1 capsule by mouth once daily Cholecalciferol (Vitamin D3) 125 mcg (5,000 unit) capsule Discontinued 125 ug PO DAILY August 13, 2021 1:00am December 04, 2021 9:30am Start: 06-19-2019 End: 11-30-2019 take 1 capsule by mouth once daily Cholecalciferol (Vitamin D3) 5,000 unit capsule Discontinued 5000 U PO DAILY June 19, 2019 12:00am November 30, 2019 2:36pm cyclobenzaprine hydrochloride 10 mg oral tablet (4 sources) Muscle Relaxant Start: 03-21-2024 take 1 tablet by mouth three times daily as needed Cyclobenzaprine 10 mg tablet Active 10 mg PO THREE TIMES A DAY as needed March 21, 2024 12:00am Start: 03-16-2019 End: 06-19-2019 take 1 tablet by mouth three times daily as needed for muscle spasms Cyclobenzaprine 10 mg tablet Discontinued 10 mg PO THREE TIMES A DAY as needed for muscle spasm 30 0 March 16, 2019 12:00am June 19, 2019 3:44pm Only after work hours on work days levOCARNitine 500 mg oral tablet (1 source) Carnitine Analog Start: 04-02-2025 take 1 tablet by mouth once daily at mealtime Levocarnitine (L-Carnitine) 500 mg tablet Active 1000 mg PO daily April 02, 2025 12:00am must administer with a meal/food levonorgestrel 0.569462 mg/hr intrauterine system (3 sources) Progestin, Progestin-containi ng Intrauterine Device Start: 12-04-2021 Levonorgestrel (Liletta) 20.1 mcg/24 hrs (6 yrs) 52 mg intrauterine device Active 1 NMA INTRA-UTER ONCE December 04, 2021 1:00am as a single dose Start: 12-04-2021 Levonorgestrel (Liletta) 20.1 mcg/24 hrs (6 yrs) 52 mg intrauterine device Active 1 DEVICE INTRA-UTER ONCE December 04, 2021 1:00am as a single dose levothyroxine sodium 0.125 mg oral tablet (20 sources) l-Thyroxine Start: 09-29-2019 End: 01-29-2025 take 1 tablet by mouth once daily Levothyroxine 125 mcg tablet Active 125 ug PO DAILY 90 0 January 29, 2025 8:17am Start: 01-31-2018 End: 09-29-2019 take 1 tablet by mouth once daily Levothyroxine 75 MCG tablet Discontinued 75 ug PO DAILY January 31, 2018 12:00am September 29, 2019 4:35pm magnesium oxide 400 mg oral tablet (1 source) Start: 04-02-2025 take 1 tablet by mouth once daily Magnesium Oxide 400 mg magnesium tablet Active 400 mg PO daily April 02, 2025 12:00am mecobalamin 1 mg chewable tablet (1 source) Start: 04-02-2025 take 1 tablet by mouth once daily Mecobalamin (Vitamin B12) 1,000 mcg tablet,chewable Active 1000 ug PO daily April 02, 2025 12:00am rizatriptan 10 mg oral tablet (9 sources) Serotonin-1b and Serotonin-1d Receptor Agonist Start: 08-13-2021 take 1 tablet by mouth once as needed Rizatriptan (Maxalt) 10 mg tablet Active 10 mg PO ONCE as needed August 13, 2021 9:09am may repeat once after at least 2 hours Start: 12-03-2020 End: 08-13-2021 Rizatriptan (Maxalt) 10 mg t ablet Discontinued 10 mg PO ONCE December 03, 2020 1:00am August 13, 2021 9:09am may repeat once after at least 2 hours Start: 09-30-2018 End: 03-16-2019 Rizatriptan 10 MG tablet Dis continued 10 mg PO NEEDED as needed for Headache September 30, 2018 1:00am March 16, 2019 12:27pm Semaglutide (2 sources) Start: 04-02-2025 Semaglutide 0. 25 mg or 0.5 mg (2 mg/3 mL) pen injector Active 2.5 mg SC EVERY WEEK April 02, 2025 8:05am for 4 weeks Start: 08-11-2024 End: 04-02-2025 Semaglutide 0.25 mg or 0.5 m g (2 mg/3 mL) pen injector Discontinued 0.25 mg SC EVERY WEEK August 11, 2024 1:00am April 02, 2025 8:08am for 4 weeks zolpidem tartrate 10 mg oral tablet (7 sources) gamma-Aminobutyric Acid-ergic Agonist Start: 03-21-2024 take 1 tablet by mouth at bedtime as needed Zolpidem 10 mg tablet Active 10 mg PO AT BEDTIME as needed March 21, 2024 12:00am Start: 12-04-2021 End: 03-21-2024 take 1 tablet by mouth at bedtime as needed Zolpidem (Ambien) 5 mg tablet Discontinued 5 mg PO AT BEDTIME as needed December 04, 2021 1:00am March 21, 2024 8:06am Start: 04-22-2014 End: 12-04-2021 take 1 tablet by mouth at bedtime as needed for sleep Zolpidem 6.25 MG tablet,ext release multiphase Discontinued 6.25 mg PO AT BEDTIME NEEDED as needed for Sleep April 22, 2014 12:00am December 04, 2021 9:30am Completed/Discontinued Medications Medication Drug Class(es) Dates Sig (Normalized) Sig (Original) acetaminophen 325 mg / HYDROcodone bitartrate 5 mg oral tablet (2 sources) Opioid Agonist Start: 12-12-2023 End: 03-21-2024 Hydrocodone-Acetami nophen 5-325 mg tablet Discontinued 1 {tbl} PO EVERY 4 HOURS NEEDED as needed for Pain 10 2 0 December 12, 2023 March 21, 2024 8:05am Back pain Dorsalgia, unspecified Start: 12-12-2023 take 1 tablet by gigi th every four hours as needed Hydrocodone-Acetaminophen Active 1 TABLE T PO EVERY 4 HOURS NEEDED 10 2 December 12, 2023 acetaminophen 325 mg / oxyCODONE hydrochloride 5 mg oral tablet (3 sources) Opioid Agonist Start: 03-14-2019 End: 03-19-2019 Oxycodone-Acetaminophen 1 TABLET tablet Discontinued 1 {tbl} PO EVERY 6 HOURS NEEDED as needed for Pain 20 5 0 March 14, 2019 March 18, 2019 12:00am March 19, 2019 12:09am Back pain Dorsalgia, unspecified Start: 03-14-2019 End: 03-19-2019 take 1 tablet by mouth every six hours as needed Oxycodone-Acetaminophen Discontinued 1 TABLET PO EVERY 6 HOURS NEEDED 20 5 March 14, 2019 March 19, 2019 12:09am Desog-E.Estradiol/E.Estradio l (6 sources) Progestin, Estrogen Start: 11-30-2019 End: 07-22-2020 take 0.15 tablet by mouth once daily Desog-E.Estradiol/E.Estradiol (Kariva (28)) 0.15-0.02 mgx21 /0.01 mg x 5 tablet Discontinued 1 {tbl} PO daily 23 09November 30, 2019 1:00am July 22, 2020 10:11am Start: 11-30-2019 End: 07-22-2020 take 0.15 tablet by mouth once daily Desog-E.Estradiol/E.Estradiol (Kariva (2 8)) 0.15-0.02 mgx21 /0.01 mg x 5 tablet Discontinued 1 TABLET PO daily November 30, 2019 1:00am July 22, 2020 10:11am Start: 06-19-2019 End: 02-15-2020 take 0.15 tablet by mouth once daily Desogestrel-Ethinyl Estradiol (Apri) 0.15-0.03 mg tablet Discontinued 1 {tbl} PO daily 23 09June 19, 2019 12:00am February 15, 2020 1:12pm Start: 06-19-2019 End: 02-15-2020 Desogestrel-Ethinyl Estradio l (Apri) 0.15-0.03 mg tablet Discontinued 1 TABLET PO daily June 19, 2019 12:00am February 15, 2020 1:12pm diazePAM 5 mg oral tablet (8 sources) Benzodiazepine Start: 12-12-2023 End: 03-21-2024 take 1 tablet by mouth three times daily as needed for muscle spasms Diazepam (Valium) 5 mg tablet Discontinued 5 mg PO THREE TIMES A DAY as needed for muscle spasm 14 0 December 12, 2023 12:00am March 21, 2024 8:05am Back pain Dorsalgia, unspecified Start: 03-14-2019 End: 06-19-2019 take 1 tablet by mouth every eight hours as needed for muscle spasms Diazepam 5 mg tablet Discontinued 5 mg PO EVERY 8 HOURS as needed for Muscle Spasm March 16, 2019 12:28pm June 19, 2019 3:44pm Back pain Dorsalgia, unspecified Drospirenone-Ethinyl Estradiol (6 sources) Progestin, Estrogen Start: 07-22-2020 End: 07-22-2020 take 3 tablets by mouth once daily Drospirenone-Ethinyl Estradiol (Loryna (28)) 3-0.02 mg tablet Discontinued 1 {tbl} PO DAILY July 22, 2020 12:00am July 22, 2020 10:30am Start: 07-22-2020 End: 07-22-2020 Drospirenone-Ethinyl Estradi ol (Loryna (28)) 3-0.02 mg tablet Discontinued 1 TABLET PO DAILY July 22, 2020 12:00am July 22, 2020 10:30am Start: 02-16-2020 End: 07-22-2020 take 3 tablets by mouth once daily Drospirenone-Ethinyl Estradiol (Gianvi (28)) 3-0.02 mg tablet Discontinued 1 {tbl} PO daily 23 09February 16, 2020 12:00am July 22, 2020 10:11am Start: 02-16-2020 End: 07-22-2020 Drospirenone-Ethinyl Estradi ol (Gianvi (28)) 3-0.02 mg tablet Discontinued 1 TABLET PO daily February 16, 2020 12:00am July 22, 2020 10:11am 21 day ethinyl estradiol 0.035016 mg/hr / etonogestrel 0.005 mg/hr vaginal system (3 sources) Progestin, Estrogen Start: 07-22-2020 End: 08-13-2021 Etonogestrel-Ethinyl Estradiol (Nuvaring) 0.12-0.015 mg/24 hr ring Discontinued 1 NMA VAGINAL ONCE 10 24 11July 22, 2020 12:00am August 13, 2021 9:[address] place ring vaginally for four weeks and then remove and immediately replace with new ring Start: 07-22-2020 End: 08-13-2021 Etonogestrel-Ethinyl Estradi ol (Nuvaring) 0.12-0.015 mg/24 hr ring Discontinued 1 VAG RING VAGINAL ONCE 10 24July 22, 2020 12:00am August 13, 2021 9:[address] ring vaginally for four weeks and then remove and immediately replace with new ring 273 day ethinyl estradiol 0.287812 mg/hr / segesterone acetate 0.33667 mg/hr vaginal system (3 sources) Estrogen Start: 12-03-2020 End: 08-13-2021 Segesterone Ac-Ethin Estradiol (Annovera) 0.15-0.013 mg/24 hour ring Discontinued 1 NMA VAGINAL every 4 weeks 1 0 December 03, 2020 1:00am August 13, 2021 9:08am leave in place for 3 weeks of a 4-week cycle Start: 12-03-2020 End: 08-13-2021 Segesterone Ac-Ethin Estradi ol (Annovera) 0.15-0.013 mg/24 hour ring Discontinued 1 VAG RING VAGINAL every 4 weeks 1 December 03, 2020 1:00am August 13, 2021 9:08am leave in place for 3 weeks of a 4-week cycle fluconazole 150 mg oral tablet (3 sources) Azole Antifungal Start: 02-15-2020 End: 07-22-2020 Fluconazole 150 mg tablet Discontinued 150 mg PO .COMPLEX 2 0 February 15, 2020 12:00am July 22, 2020 10:10am 150 mg PO take one po now and repeat in 3 days ibuprofen 800 mg oral tablet (3 sources) Nonsteroidal Anti-inflammatory Drug Start: 03-16-2019 End: 06-19-2019 take 1 tablet by mouth three times daily Ibuprofen 800 mg tablet Discontinued 800 mg PO THREE TIMES A DAY 45 0 March 16, 2019 12:00am June 19, 2019 3:44pm Keto supplement (3 sources) Start: 12-04-2021 End: 03-21-2024 Keto supplement Discontinued PO 0 December 04, 2021 1:00am March 21, 2024 8:05am Start: 12-04-2021 Keto supplemen t Active PO December 04, 2021 1:00am metFORMIN hydrochloride 500 mg oral tablet (3 sources) Biguanide Start: 05-04-2023 End: 03-21-2024 take 1 tablet by mouth twice daily Metformin 500 mg tablet Discontinued 500 mg PO TWICE A DAY May 04, 2023 12:00am March 21, 2024 8:05am miSOPROStol 0.1 mg oral tablet (3 sources) Prostaglandin E1 Analog Start: 01-31-2021 End: 08-13-2021 Misoprostol 100 mcg tablet Discontinued 200 ug PO ONCE 4 0 January 31, 2021 12:00am August 13, 2021 9:08am take the night before and 2 hours prior to procedure Start: 01-31-2021 End: 08-13-2021 Misoprostol Discontinued 200 MCG PO ONCE 4 January 31, 2021 12:00am August 13, 2021 9:08am take the night before and 2 hours prior to procedure naproxen 500 mg oral tablet (3 sources) Nonsteroidal Anti-inflammatory Drug Start: 01-31-2021 End: 12-04-2021 take 1 tablet by mouth twice daily Naproxen 500 mg tablet Discontinued 500 mg PO TWICE A DAY 7 January 31, 2021 12:00am December 04, 2021 9:30am Ogden-3 Fatty Acids (Fish Oil Concentrate) 1,000 mg capsule (3 sources) Start: 06-19-2019 End: 11-30-2019 take 1 capsule by mouth once daily Ogden-3 Fatty Acids (Fish Oil Concentrate) 1,000 mg capsule Discontinued 1000 mg PO DAILY June 19, 2019 12:00am November 30, 2019 2:36pm Start: 06-19-2019 End: 11-30-2019 take 1 capsule by mouth once daily Ogden-3 Fatty Acids (Fish Oil Concentrate) 1,000 mg capsule Discontinued 1000 MG PO DAILY June 19, 2019 12:00am November 30, 2019 2:36pm penicillin v potassium 500 mg oral tablet (2 sources) Start: 05-11-2023 End: 03-21-2024 take 1 tablet by mouth twice daily Penicillin V Potassium 500 mg tablet Discontinued 500 mg PO TWICE A DAY 20 May 11, 2023 12:00am March 21, 2024 8:06am phentermine hydrochloride 37.5 mg oral tablet (9 sources) Sympathomimetic Amine Anorectic Start: 07-22-2020 End: 12-03-2020 take 1 tablet by mouth once daily Phentermine (Adipex-P) 37.5 mg tablet Discontinued 37.5 mg PO daily 30 September 16, 2020 2:48pm December 03, 2020 2:22pm predniSONE 20 mg oral tablet (2 sources) Start: 05-11-2023 End: 03-21-2024 take 2 tablets by mouth once daily Prednisone 20 mg tablet Discontinued 40 mg PO DAILY 14 7 May 11, 2023 12:00am March 21, 2024 8:06am Start: 05-11-2023 take 40 mg by mouth once daily Prednisone Active 40 MG PO DAILY 14 May 11, 2023 12:00am progesterone 100 mg oral capsule (6 sources) Progesterone Start: 03-16-2019 End: 11-30-2019 Progesterone Micronized 100 mg capsule Discontinued PO 90 0 March 16, 2019 12:00am November 30, 2019 2:36pm Start: 03-16-2019 End: 11-30-2019 Progesterone Micronized Disc ontinued PO 90 March 16, 2019 12:00am November 30, 2019 2:36pm Start: 07-17-2017 End: 03-16-2019 take 1 capsule by mouth at bedtime Progesterone Micronized 200 MG capsule Discontinued 300 mg PO AT BEDTIME July 17, 2017 12:00am March 16, 2019 12:27pm Start: 07-17-2017 End: 03-16-2019 take 300 mg by mouth at bedtime Progesterone Micronize d Discontinued 300 MG PO AT BEDTIME July 17, 2017 12:00am March 16, 2019 12:27pm Problems Problem Classification Problem Date Documented Date Episodic/Chronic Contraceptive and procreative management (3 sources) Patient encounter status; Translations: [Encounter for contraceptive management, unspecified] 01-31-2021 Episodic Comment on above: No PA needed. Ref#[id number] Diabetes mellitus without complication (3 sources) Abnormal glucose level; Translations: [Other abnormal glucose] 12-04-2022 Episodic Disorders of lipid metabolism (4 sources) Hypercholesterolemia; Translations: [Pure hypercholesterolemia, unspecified] 05-04-2023 Chronic Mood disorders (3 sources) Premenstrual dysphoric disorder; Translations: [Premenstrual dysphoric disorder] 12-03-2020 Chronic Comment on above: continuous annovera, consider IUD. failed desogestrel and drospirenone. Nutritional deficiencies (4 sources) Vitamin D deficiency, unspecified; Translations: [Vitamin D deficiency] Onset: 06-26-2024 03-22-2024 Chronic Osteoarthritis (3 sources) Osteoarthritis of left knee joint; Translations: [Unilateral primary osteoarthritis, left knee] 08-13-2021 Chronic Other endocrine disorders (3 sources) Polycystic ovary syndrome; Translations: [Polycystic ovarian syndrome] 12-04-2022 Chronic Other female genital disorders (3 sources) Abnormal uterine bleeding; Translations: [Abnormal uterine and vaginal bleeding, unspecified] 12-01-2019 Chronic Comment on above: no PCOS. Other liver diseases (3 sources) Elevated liver enzymes level; Translations: [Abnormal levels of other serum enzymes] 05-04-2023 Episodic Other non-traumatic joint disorders (3 sources) Knee joint inflamed; Translations: [Monoarthritis, not elsewhere classified, left knee] 08-13-2021 Chronic Other non-traumatic joint disorders (3 sources) Pain in left knee; Translations: [Left knee pain] 08-13-2021 Episodic Other nutritional; endocrine; and metabolic disorders (3 sources) Body mass index 30+ - obesity; Translations: [Body mass index (BMI) 33.0-33.9, adult] 05-04-2023 Chronic Comment on above: [facility] discussed medic ation options. Other nutritional; endocrine; and metabolic disorders (1 source) Body mass index (BMI) 33.0-33.9, adult; Translations: [Body Mass Index 33.0-33.9, adult] 05-04-2023 Chronic Other nutritional; endocrine; and metabolic disorders (2 sources) Obesity; Translations: [Obesity, unspecified] 04-02-2025 Chronic Other nutritional; endocrine; and metabolic disorders (1 source) Morbid (severe) obesity due to excess calories; Translations: [Morbid (severe) obesity due to excess calories] Onset: 04-02-2025 Chronic Other nutritional; endocrine; and metabolic disorders (1 source) Body mass index (BMI) 39.0-39.9, adult; Translations: [Body mass index [BMI] 39.0-39.9, adult] Onset: 04-02-2025 Chronic Other nutritional; endocrine; and metabolic disorders (2 sources) Weight gain; Translations: [Abnormal weight gain] 06-22-2019 Episodic Other nutritional; endocrine; and metabolic disorders (1 source) Weight increased; Translations: [Abnormal weight gain] 06-22-2019 Episodic Comment on above: discussed lifestyle interventions, fu if further support needed. Other skin disorders (3 sources) Acne; Translations: [Acne, unspecified] 11-30-2019 Episodic Comment on above: switch to Kariva. Other upper respiratory infections (2 sources) Acute pharyngitis; Translations: [Acute pharyngitis, unspecified] 05-19-2023 Episodic Residual codes; unclassified (3 sources) Positive measurement finding; Translations: [Positive test for human papillomavirus (HPV)] 12-07-2019 Episodic Comment on above: Pap normal-Next pap in 2020 Spondylosis; intervertebral disc disorders; other back problems (2 sources) Backache; Translations: [Dorsalgia, unspecified] 12-12-2023 Episodic Sprains and strains (3 sources) Low back strain; Translations: [Strain of muscle, fascia and tendon of lower back, initial encounter] 06-19-2019 Episodic Thyroid disorders (6 sources) 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 [place] [address] OFFICE VISIT Date of Service: 04/02/25 MR#: [id number] Acct: [id number] Name: NICHOLE WARNER Rep #: [id number] : 1985 Provider: Zoey Duarte Age/Sex: 40/F Location: [facility] Status: Signed Intake Vital Signs 03/21/24 08:02 08/11/24 10:33 04/02/25 07:59 Height 5 ft 7 in 5 ft 7 in 5 ft 7 in Weight: 207 lb 4 oz BMI 32.4 BP 131/88 H Blood Pressure Location Rt brachial Position Sitting Pulse 93 Pulse Source Monitor Pulse Oximetry (%) 98 Oxygen Delivery Method room air Intake Visit Reasons: 1 Y FU Chief Complaint: Thyroid, PCOS Allergies sulfamethoxazole (From Bactrim) Allergy (Verified 04/02/25 08:05) Rash trimethoprim (From Bactrim) Allergy (Verified 04/02/25 08:05) Rash Medications ???Medication ???Instructions ???Recorded ???Confirmed ???Type rizatriptan 10 mg tablet (Maxalt) 10 mg PO ONCE PRN 08/13/21 History levonorgestrel 20.4 mcg/24 hr (up 1 device intrauterine ONCE 04/02/25 History to 8 yrs) 52 mg intrauterine device (Liletta) alprazolam 0.5 mg tablet,extended 0.5 mg PO DAILY PRN 12/04/2204/20 History release 24 hr (Xanax XR) cyclobenzaprine 10 mg tablet 10 mg PO TID PRN 03/21/24 04/02/25 History zolpidem 10 mg tablet 10 mg PO QHS PRN 03/21/24 04/02/25 History levothyroxine 125 mcg tablet 125 mcg PO DAILY #90 tabs 01/29/25 04/02/25 Rx biotin 10,000 mcg chewable tablet mcg PO 04/02/25 04/02/25 History (Hair, Skin and Nails (biotin)) cholecalciferol (vitamin D3) 25 25 mcg PO QDAY 04/02/25 04/02/25 H istory mcg (1,000 unit) capsule levocarnitine 500 mg tablet 1,000 mg PO QDAY 04/02/25 04/02/25 History (L-Carnitine) magnesium oxide 400 mg PO QDAY 04/02/25 04/02/25 H istory mecobalamin (vitamin B12) 1,000 1,000 mcg PO QDAY 04/02/25 5 History mcg chewable tablet semaglutide 0.25 mg or 0.5 mg (2 2.5 mg subcut QWEEK 04/02/2504/02 History mg/3 mL) subcutaneous pen injector [facility] Medical History Obesity Abnormal glucose PCOS (polycystic ovarian syndrome) Contraceptive management Sleep apnea Norovirus Back pain Limb weakness Thyroid disease Surgical History History of arthroscopic knee surgery History of appendectomy Family History Father Cancer leukemia Grandfather Hypertension Cancer Diabetes Heart disease Grandmother Hypertension Cancer Diabetes Heart disease Social History Smoking Status: Never smoker alcohol intake: never substance use type: does not use caffeine: Yes what type of physical activity do you participate in: walking seatbelt use: always do you feel safe at home: Yes additional social history: [employer] 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 She has hypothyroidism and is taking levothyroxine. She has lost about 50 pounds, so she may need a dosage adjustment. She has history of high lipids. ROS Const Constitutional: No fatigue or weight change ENT ENT: No dizziness/vertigo Cardio Cardiology: No chest pain at rest, chest pain with exertion, shortness of breath or palpitations Skin Skin: No wounds Endo Endocrine: No fatigue or weight change Exam Const General: cooperative, healthy appearing, comfortable, no acute distress, well developed and not cushingoid Nutritional Appearance: well nourished Orientation: alert, awake and oriented x3 HENMT Head: normal to inspection Ears: hearing grossly normal bilaterally Nose: external nose normal Mouth: oral mucosae normal Eyes General: appearance normal, both eyes and all related structures Alignment and Position: alignment normal Periorbital: periorbital findings normal Eyelids: eyelids normal Conjunctivae: conjunctivae normal Neck Neck: normal visual inspection Neck mass: No Thyroid: thyroid normal Lymphatic: no lymphadenopathy noted Chest Chest palpation inspection: normal inspection of the chest Resp Effort Inspection: normal respiratory effort, able to speak in complete sentences, symmetric chest movement, no audible wheezes and no cough Auscultation: Bilateral: Clear to Auscultation Cardio Rate: regular rate Rhythm: regular rhythm Skin General: no rashes or lesions noted Neuro General: patient alert, patient awake and patient oriented x3 Cranial Nerves: CN's II-XI intact bilaterally Cognition: normal cognition Speech: speech n (more content not included)... Normal [facility] Paint Mixer Hand Office Visit Reporton 08-11-2024 Paint Mixer Hand Office Visit Report [facility]'s [address], [address] [place] [address] OFFICE VISIT Date of Service: 08/11/24 MR#: [id number] Acct: [id number] Name: NICHOLE WARNER Rep #: [id number] : 1985 Provider: BRETT Juarez ams Age/Sex: 39/F Location: 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 Is patient in pain?: Yes (left breast tenderness ) Allergies sulfamethoxazole (From Bactrim) Allergy (Verified 08/11/24 10:32) Rash trimethoprim (From Bactrim) Allergy (Verified 08/11/24 10:32) Rash Medications ???Medication ???Instructions ???Recorded ???Confirmed ???Type rizatriptan 10 mg tablet (Maxalt) 10 mg PO ONCE PRN 08/13/21 08/11/24 History levonorgestrel 20.4 mcg/24 hr (up 1 device intrauterine ONCE 12/04/21 08/11/24 History to 8 yrs) 52 mg intrauterine device (Liletta) alprazolam 0.5 mg tablet,extended 0.5 mg PO DAILY PRN 12/04/22 08/11/24 History release 24 hr (Xanax XR) cyclobenzaprine 10 mg tablet 10 mg PO TID PRN 03/21/24 08/11/24 History zolpidem 10 mg tablet 10 mg PO QHS PRN 03/21/24 08/11/24 History levothyroxine 125 mcg tablet 125 mcg PO DAILY #90 tabs 04/10/24 08/11/24 Rx semaglutide 0.25 mg or 0.5 mg (2 0.25 mg subcut QWEEK 08/11/24 08/11/24 History mg/3 mL) subcutaneous pen injector [facility] Medical History Obesity Abnormal glucose PCOS (polycystic ovarian syndrome) Contraceptive management Sleep apnea Norovirus Back pain Limb weakness Thyroid disease Surgical History History of arthroscopic knee surgery History of appendectomy Family History Father Cancer leukemia Grandfather Hypertension Cancer Diabetes Heart disease Grandmother Hypertension Cancer Diabetes Heart disease Social History Smoking Status: Never smoker alcohol intake: never substance use type: does not use caffeine: Yes what type of physical activity do you participate in: walking seatbelt use: always do you feel safe at home: Yes additional social history: [employer] Patient is an RN [facility] History 0 Elective abortions Hx Para Spontaneous abortions Hx # Term Pregnancies Ectopic pregnancies Hx # Pregnancies Multiple births # of living children HPI Encounter for routine gynecological examination Details: NICHOLE WARNER is a 39 year old who presents for annual exam. doing well. does have small amt of left breast tenderness that started yesterday. would like to monitor over the weekand and if not improved order mammogram Last PAP: 2020 History of abnormal PAP: many years ago Last mammogram: AGe 40 History of abnormal mammogram: [] Colon cancer screening: Age 47 Other preventative health care screenings: PCP Female Reproductive History Questions: metorrhagia: No, sexually active: Yes, dyspareunia: No and PCB: No Menopausal Symptoms: No hot flashes, No night sweats, No mood changes, No difficulty concentrating and No sleep problems ROS Const Constitutional: Reports system reviewed and no additional complaints, except as documented; Denies night sweats Cardio Card: Reports system reviewed and no additional complaints, except as documented Resp Resp: Reports system reviewed and no additional complaints, except as documented GI GI: Reports system reviewed and no additional complaints, except as documented : Reports system reviewed and no additional complaints, except as documented; Denies difficulty voiding, dysuria, hot flashes or urinary frequency Skin Skin/Breast: Reports system reviewed and no additional complaints, except as documented Neuro Neuro: Reports system reviewed and no additional complaints, except as documented Psych Psych: Reports system reviewed and no additional complaints, except as documented; Denies anhedonia, anxiety, depression or difficulty concentrating Exam Const General: cooperative, healthy appearing, comfortable and no acute distress Orientation: alert, awake and oriented x3 Neck Neck: normal visual inspection and full ROM Thyroid: thyroid normal Chest Breast inspection: normal inspection of the breasts and normal inspection of the axillae Breast palpation: normal palpation of the breasts and normal palpation of the axil (more content not included)... Normal [facility] Laboratory - Microbiology an d Antimicrobial susceptibilityon 09-14-2023 SARS-CoV-2 (COVID-19) RNA JENNYFER+probe Ql (Unsp spec) Not detected [facility] No Panel Informationon 09-14 POC Nasal Swab Influenza A,B Not detected [facility] POC Nasal Swab RSV Not detected [facility] Basophil percentageOrdered B y: Noe Lee on 04-05-2023 Bilirubin [Mass/Vol] 0.20 mg/dL 0.20-1.00 [facility] Comment on above: For patients on eltr ombopag therapy, use of Dimension [place] TBIL is not recommended. Chloride [Moles/Vol] 106 mmol/L 98-107 [facility] Cholesterol [Mass/Vol] 214 mg/dL <200 [facility] Comment on above: <200 mg/dL Desirable 200-240 mg/dL Borderline >240 mg/dL High Risk Glucose [Mass/Vol] 79 mg/dL 74-106 [facility] Potassium [Moles/Vol] 3.7 mmol/L 3.5-5.1 [facility] Protein [Mass/Vol] 8.1 g/dL 6.4-8.2 [facility] Sodium [Moles/Vol] 134 mmol/L 136-145 [facility] Triglyceride [Mass/Vol] 193 mg/dL <199 [facility] Comment on above: The drugs N-Acetylcy steine and Metamizole may falsely depress this assay.Serum Triglycerides Reference Interval Normal <150 mg/dL Borderline high 150 - 199 mg/dL High 200 - 499 mg/dL Very High > or = 500 mg/dL Laboratory - Chemistry and C hemistry - challengeOrdered By: Noe Lee on 04-05-2023 ALP [Catalytic activity/Vol] 97 U/L 45-117 [facility] ALT [Catalytic activity/Vol] 66 U/L 13-56 [facility] CO2 [Moles/Vol] 19.0 mmol/L 21.0-32.0 [facility] Free T4 [Mass/Vol] 0.97 ng/dL 0.76-1.46 [facility] Globulin (S) [Mass/Vol] 4.2 g/dL 2.2-4.2 [facility] Urea nitrogen/Creatinine [Mass ratio] 14.7 mg/mg 10- [facility] No Panel InformationOrdered By: Noe Lee on 04-05-2023 Estimated GFR (MDRD) Amer 102 mL/min >60 [facility] Comment on above: GFR Calc Estimated GFR (MDRD) Non-Af Amer 84 mL/min >60 [facility] Comment on above: Non- GFR Calc Thyroid Stimulating Hormone (TSH) 2.70 uIU/mL 0.358-3.74 [facility] Serum or plasma albumin ame urement (mass/volume)Ordered By: Noe Lee on 04-05-2023 Albumin [Mass/Vol] 3.9 g/dL 3.2-5.0 [facility] Serum or plasma albumin/glob ulin mass ratioOrdered By: Noe Lee on 04-05-2023 Albumin/Globulin [Mass ratio] 0.9 {ratio} 0.9-2.4 [facility] Serum or plasma calcium ame urement (mass/volume)Ordered By: Noe Lee on 04-05-2023 Calcium [Mass/Vol] 8.9 mg/dL 8.5-10.1 [facility] Serum or plasma cholesterol in HDL measurement (mass/volume)Ordered By: Noe Lee on 04-05-2023 Cholesterol in HDL [Mass/Vol] 40 mg/dL >40 [facility] Comment on above: The drugs N-Acetylcy steine and Metamizole may falsely depress this assay. Reference Range HDL <40 mg/dL Low HDL Cholesterol HDL >or= 60 mg/dL High HDL Cholesterol Serum or plasma cholesterol in VLDL measurement (mass/volume)Ordered By: Noe Lee on 04-05-2023 Cholesterol in VLDL [Mass/Vol] 39 mg/dL 5-40 [facility] Serum or plasma creatinine m easurement (mass/volume)Ordered By: Noe Lee on 04-05-2023 Creatinine [Mass/Vol] 0.82 mg/dL 0.55-1.02 [facility] Comment on above: The validity of the calculated GFR & GFRAA in patients over 70 years has not been determined. Clinical correlation is essential. Serum or plasma low density lipoprotein (LDL) cholesterol measurement (mass/volume)Ordered By: Noe Lee on 04-05-2023 Cholesterol in LDL [Mass/Vol] 135 mg/dL 0-130 [facility] Serum or plasma urea nitroge n measurement (mass/volume)Ordered By: Noe Lee on 04-05-2023 Urea nitrogen [Mass/Vol] 12 mg/dL 7-18 [facility] Thin prep Papanicolaou smear with manual screeningOrdered By: Noe Lee on 04-05-2023 Thin prep Papanicolaou smear with manual screening 30 U/L 15-37 [facility] Thin prep Papanicolaou smear with manual screening 9 5-15 [facility] NOVEL CORONAVIRUS NASOPHARYN GEAL - [facility] SPECIMEN ONLYon 06-26-2020 SARS-COV-2 NOT DETECTED Normal NOT DETECTED [facility] Comment on above: Order Comment: Viral transport media - Collection must be done while wearing N-95 mask, eye protection, gown and gloves. Please label ALL specimens as 2019-nCoV rule out and deliver by hand. This test was performed using performed using real time PCR for the qualitative detection of SARS-CoV-2 nucleic acid and has been approved as Emergency Use Authorization (EUA) for the qualitative detection of SARS-CoV-2 nucleic acid. Result Comment: Nega tive results do not preclude SARS-CoV-2 infection and should not be used as the sole basis for treatment or other patient management decisions. Optimum specimen types and timing for peak viral levels during infections caused by SARS-CoV-2 has not been determined. The possibility of a false negative result should especially be considered if the patient's recent exposures or clinical presentation suggest that SARS-CoV-2 infection is probable, and diagnostic tests for other causes of illness (e.g., other respiratory illness) are negative. Collection of a new specimen and re-testing may be necessary if the patient is critically ill or clinically deteriorating. Performed By: #### L [id number] #### [facility] (DEFAULT) [address] [place] [address] NOVEL CORONAVIRUS NASOPHARYN GEAL - [facility] SPECIMEN ONLYon 06-12-2020 SARS-COV-2 NOT DETECTED Normal NOT DETECTED [facility] Comment on above: Order Comment: Viral transport media - Collection must be done while wearing N-95 mask, eye protection, gown and gloves. Please label ALL specimens as 2019-nCoV rule out and deliver by hand. This test was performed using real time PCR and has been approved for the qualitative detection of SARS-CoV-2 nucleic acid. The test has been authorized by the FDA under an emergency use authorization for use by authorized laboratories. Result Comment: Nega tive results do not preclude SARS-CoV-2 infection and should not be used as the sole basis for treatment or other patient management decisions. Optimum specimen types and timing for peak viral levels during infections caused by SARS-CoV-2 has not been determined. The possibility of a false negative result should especially be considered if the patient's recent exposures or clinical presentation suggest that SARS-CoV-2 infection is probable, and diagnostic tests for other causes of illness (e.g., other respiratory illness) are negative. Collection of a new specimen and re-testing may be necessary if the patient is critically ill or clinically deteriorating. Performed By: #### L [id number] #### [facility] ([facility]) [address] [place] [address] Vital Signs Date Time Vital Sign Value Performing Clinician Semaj tay 04-02-2025 07:59-0400 Body height 170.18 cm [employer] Work Phone: [facility] 04-02-2025 07:59-0400 Body mass index (BMI) [Ratio] 32.4 kg/m2 [employer] Work Phone: [facility] 04-02-2025 07:59-0400 Body weight 94 kg [employer] Work Phone: [facility] 04-02-2025 07:59-0400 Diastolic blood pressure 88 mm[Hg] [employer] Work Phone: [facility] 04-02-2025 07:59-0400 Heart rate 93 /min [employer] Work Phone: [facility] 04-02-2025 07:59-0400 SaO2% (BldA) [Mass fraction] 98 % [employer] Work Phone: [facility] 04-02-2025 07:59-0400 Systolic blood pressure 131 mm[Hg] [employer] Work Phone: [facility] 12-12-2023 07:13-0400 Body mass index (BMI) [Ratio] 41.7 kg/m2 PA-C Jacinto QuesCom PA Work Phone: [facility] 12-12-2023 07:13-0400 Body weight 120.8 kg PA-C Jacinto [employer] PA Work Phone: [facility] 12-12-2023 07:05-0400 Body height 170.18 cm PA-C Jacinto [employer] PA Work Phone: [facility] 12-12-2023 07:05-0400 Body temperature 97.7 [degF] PA-C Jacinto [employer] PA Work Phone: [facility] 12-12-2023 07:05-0400 Diastolic blood pressure 95 mm[Hg] PA-C Jacinto [employer]uesCom PA Work Phone: [facility] 12-12-2023 07:05-0400 Heart rate 93 /min PA-C [employer] PA Work Phone: [facility] 12-12-2023 07:05-0400 Respiratory rate 14 /min PA-C Jacinto QuesCom PA Work Phone: [facility] 12-12-2023 07:05-0400 SaO2% (BldA) [Mass fraction] 97 % PA-C Jacinto QuesCom PA Work Phone: [facility] 12-12-2023 07:05-0400 Systolic blood pressure 139 mm[Hg] PA-C Jacinto QuesCom PA Work Phone: [facility] 05-11-2023 23:06-0400 Body height 170.18 cm PA-C Jacinto [employer]uesCom PA Work Phone: [facility] 05-11-2023 23:06-0400 Body temperature 98 [degF] PA-C Jacinto [employer]uesCom PA Work Phone: [facility] 05-11-2023 23:06-0400 Diastolic blood pressure 72 mm[Hg] PA-C Jacinto QuesCom PA Work Phone: [facility] 05-11-2023 23:06-0400 Heart rate 95 /min PA-C Jacinto Cheltenham PA Work Phone: [facility] 05-11-2023 23:06-0400 Respiratory rate 18 /min PA-C Jacinto Cheltenham PA Work Phone: [facility] 05-11-2023 23:06-0400 SaO2% (BldA) [Mass fraction] 98 % PA-C Jacinto Cheltenham PA Work Phone: [facility] 05-11-2023 23:06-0400 Systolic blood pressure 118 mm[Hg] PA-C Jacinto Cheltenham PA Work Phone: [facility] 05-04-2023 10:30-0400 Body mass index (BMI) [Ratio] 38 kg/m2 PA-C Jacinto Cheltenham PA Work Phone: [facility] 05-04-2023 10:30-0400 Body weight 111.75 kg PA-C Jacinto Cheltenham PA Work Phone: [facility] 05-04-2023 10:30-0400 Diastolic blood pressure 90 mm[Hg] PA-C Jacinto Cheltenham PA Work Phone: [facility] 05-04-2023 10:30-0400 Systolic blood pressure 127 mm[Hg] PA-C Jacinto Cheltenham PA Work Phone: [facility] Encounters Encounter Date Encounter Type Care Provider Facility Start: 04-02-2025 End: 04-02-[address] Noe Lee MD -[facility] Work Phone: Start: 04-02-2025 End: 04-02-2025 ambulatory Jacinto Cheltenham PA-C Work Phone: -[facility] Start: 08-11-2024 Encounter for gynecological examination (general) (routine) without abnormal findings Radha Gandhi [facility] Start: 08-11-2024 End: 08-11-2024 ambulatory Jacinto DE DIOS Facility:[facility] Start: 06-26-2024 ambulatory JACINTO MCKEON [facility] Start: 12-12-2023 End: 12-12-2023 Emergency department patient visit CHARMAINE DE DIOS Work Phone: [facility] Work Phone: Start: 09-14-2023 End: 09-14-2023 Patient encounter procedure CHARMAINE DE DIOS Work Phone: [facility] Work Phone: Start: 05-11-2023 End: 05-11-2023 Emergency department patient visit CHARMAINE DE DIOS Work Phone: [facility] Work Phone: Start: 05-04-2023 End: 05-04-2023 Patient encounter procedure CHARMAINE DE DIOS Work Phone: [facility] Work Phone: Start: 04-05-2023 Registered Referred CHARMAINE DE DIOS Work Phone: [facility]-Employee Health Plan of Treatment Date Care Activity Detail Author Start: 12-12-2023 [facility] Comprehensive metabo lic 1999 panel - Serum or Plasma [facility] Lipid 1996 panel - S margarita or Plasma [facility] Patient Education ED Back and Ne ck Pain, General [facility] Work Phone: Patient referral [facility] Work Phone: T4 free measurement [facility] Thyroid stimulating hormone measurement [facility] Vitamin B12 measurement [facility] Vitamin D, 25-hydrox y measurement [facility] Immunizations Immunization Date Immunization Notes Care Provider Fa cility 06-24-2024 influenza, seasonal, injectable, preservative free Jacinto Merrill PA-C Work Phone: [facility] 07-02-2023 influenza, injectabl e, quadrivalent, preservative free PA-C Jacinto Hills PA Work Phone: [facility] 01-26-2023 tetanus toxoid, redu ye diphtheria toxoid, and acellular pertussis vaccine, adsorbed PA-C Jacinto Hills PA Work Phone: [facility] 06-24-2021 influenza, injectabl e, quadrivalent, preservative free PA-C Jacinto Hills PA Work Phone: [facility] 06-24-2021 influenza, seasonal, injectable PA-C Jacinto Hills PA Work Phone: [facility] 10-29-2020 Cov[facility] (Moderna) [facility] 10-01-2020 Covid (Moderna) [facility] Work Phone: [facility] 06-25-2020 influenza, injectabl e, quadrivalent, preservative free PA-C Jacinto Hills PA Work Phone: [facility] 06-25-2020 influenza, seasonal, injectable PA-C Jacinto Cheltenham PA Work Phone: [facility] 07-31-2019 influenza, injectabl e, quadrivalent, preservative free PA-C Jacinto Cheltenham PA Work Phone: [facility] 07-31-2019 influenza, seasonal, injectable PA-C Jacinto Cheltenham PA Work Phone: [facility] 07-27-2018 influenza, injectabl e, quadrivalent, preservative free PA-C Jacinto Cheltenham PA Work Phone: [facility] 07-27-2018 influenza, seasonal, injectable PA-C Jacinto Cheltenham PA Work Phone: [facility] 06-28-2017 influenza, injectabl e, quadrivalent, preservative free PA-C Jacinto Cheltenham PA Work Phone: [facility] 06-28-2017 influenza, seasonal, injectable PA-C Jacinto Cheltenham PA Work Phone: [facility] 06-26-2016 influenza, injectabl e, quadrivalent, preservative free PA-C Jacinto Cheltenham PA Work Phone: [facility] 06-26-2016 influenza, seasonal, injectable PA-C Jacinto Cheltenham PA Work Phone: [facility] 08-12-2015 influenza, injectabl e, quadrivalent, preservative free PA-C Jacinto Cheltenham PA Work Phone: [facility] 08-12-2015 influenza, seasonal, injectable PA-C Jacinto Cheltenham PA Work Phone: [facility] 06-23-2014 influenza, injectabl e, quadrivalent, preservative free PA-C Jacinto Cheltenham PA Work Phone: [facility] 06-23-2014 influenza, seasonal, injectable PA-C Jacinto Cheltenham PA Work Phone: [facility] Payers Date Payer Category Payer Self-pay [id number] 2024 Unknown [id number] 2016 Unknown [id number] 2012 Unknown [id number] Private Health Insurance [facility] [id number] Unknown [id number] Unknown [id number] Social History Date Type Detail Facility Start: 05-11-2023 End: 12-12-2023 Tobacco smoking status NHIS Unknown if ever smoked [facility] Start: 1985 Sex Assigned At Female [facility] Start: 12-12-2023 Tobacco smoking status NHIS Never smoked tobacco (finding) [facility] NEGATED: Highlighted row [facility] Chief complaint+Reason for visit Narrative Note Date & Type Note Facility Chief complaint+Reason for v isit Narrative [facility] Work Phone: Evaluation note Note Date & Type Note Facility Evaluation note Diagnosis Onset Date BMI 33.0-33.9,adult acute High cholesterol acute Encounter for routine gyneco logical examination noneactive [facility] Work Phone: Evaluation note Note Date & Type Note Facility Evaluation note No assessment information availa ble [facility] Work Phone: Evaluation note Note Date & Type Note Facility Evaluation note Diagnosis Onset Date Resolution Vitamin D deficiency acute April 02, 2025 8:01am 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 March 8:01am Obesity chronic April 02, 2025 8:01am [employer] Work Phone: Reason for referral (narrative) Note Date & Type Note Facility Reason for referral (narrative) No reason for referral information available [facility] [employer] [facility] Work Phone: Summary Purpose Family History No Family History Records Found Relationship Condition Age at Onset Recorded Date/T jeffery father Malignant neoplasm Unknown grandfather Hypertension Unknown Malignant neoplasm Unknown Diabetes mellitus Unknown Cardiac disease Unknown grandmother Hypertension Unknown Advance Directives No Advanced Directives Records Found Advance Directive Response Recorded Date/ Time Advance Directives No March 17 8:22am Living Will No May 11 11:06pm Power of Dry Wall Installations Mechanic No May 11 11:06pm Advance Directive Response Recorded Date/ Time Advance Directives No March 17 8:22am Living Will No December 12, 2023 7:11am Power of Dry Wall Installations Mechanic No December 11 7:11am Advance Directive Response Recorded Date/ Time Living Will No December 12, 2023 7:11am Do you have a Healthcare Power of Dry Wall Installations Mechanic? 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 Reason for Visit BMI 33.0-33.9,adult High cholesterol Encounter for routine gynecological examination Chief Complaint Admit Date 1 Y FU April 02, 2025 8:01a m Reason for Visit Admit Date Vitamin D deficiency April 02, 2025 8:01 am Hypothyroidism due to Mart's thyroi ditis April 02, 2025 8:01am Obesity April 02, 2025 8:01a m Additional Source Comments INFORMATION SOURCE (unrecogn ized section and content) DATE CREATED AUTHOR 07/01/2020 [facility] DATE CREATED AUTHOR AUTHOR'S ORGANIZ ATION 06/27/2024 [facility] DATE CREATED AUTHOR AUTHOR'S ORGANIZ ATION 04/05/2025 [facility] Care Teams (unrecognized sec tion and content) Team Status: Active Member Role Status Dates [facility] PA, PA-C Family Provider Active [facility] PA, PA-C Primary Care Provider Active Team Status: Inactive Member Role Status Dates [facility] PA, PA-C Primary Care Provider, Referri ng Provider Active Dr. Kathy Perez MD Attending Provider Active Team Status: Active Member Role Status Dates [facility] PA, PA-C Primary Care Provider Active Health Risk Assessment Attending Provider, Anna dior Active Team Status: Inactive Member Role Status Dates [facility] PA, PA-C Primary Care Provider Active Dr. Yasmany Boyd , DO Emergency Provider Active Team Status: Inactive Member Role Status Dates [facility] PA, PA-C Primary Care Provider, Referri ng Provider Active Fabrice DE DIOS PA Attending Provider Active Team Status: Inactive Member Role Status Dates [facility] PA, PA-C Primary Care Provider Active Dr. Susan Townsend , DO Emergency Provider Active Team Status: Active Member Role/Relationship Status Dates [facility] PA, PA-C Family Provider Active [facility] PA, PA-C Primary Care Provider Active Team Status: Inactive Member Role/Relationship Status Dates [facility] PA, PA-C Primary Care Provider Active Start: April 02, 2025 End: April 02, 2025 Jacinto DE DIOS PA-C Referring Provider Active Start: April 02, 2025 End: April 02, 2025 Dr. Noe Lee MD Attending Provider Active Sta rt: April 02, 2025 End: April 02, 2025 Goals (unrecognized section and content) Goals may be documented in a n alternate sectionGoals may be documented in an alternate sectionGoals may be documented in an alternate section FOR RECORDS PERTAINING TO PATIENTS WHO ARE [...] BE BASED ON THE PRIMARY CLINICAL RECORDS. [facility]. provides no warranty or guarantee of the accuracy or completeness of information in this document.
[2025-04-06 14:59] LABS: Vitamin B12 1991 pg/mL (180-914); Vitamin D,25 Hydroxy 48.3 ng/mL (30-100)
== END | disposition home or self-care (01) ==
PROVIDERS: PCP Family Medicine; Visit Provider Internal Medicine Endocrinology, Diabetes & Metabolism
DX: E03.9 Hypothyroidism, unspecified (principal); E06.3 Autoimmune thyroiditis; E66.01 Morbid (severe) obesity due to excess calories; E55.9 Vitamin D deficiency, unspecified; Z68.39 Body mass index [BMI] 39.0-39.9, adult
CPT/HCPCS: 82306; 82607; 84439; 84443